=== PATIENT | female | born 1945 | race Caucasian/White ===

== ENCOUNTER 2017-09-26 12:02 | Outpatient (CLI) | payer MEDICARE | END 2017-09-26 12:03 | disposition home or self-care (01) | LOC: BICRAD 12:02 | PROVIDERS: ATTEND Family Medicine | DX: M54.6 Pain in thoracic spine (principal); R68.83 Chills (without fever); R53.83 Other fatigue; J18.9 Pneumonia, unspecified organism; I77.810 Thoracic aortic ectasia | CPT/HCPCS: 71046 ==

== ENCOUNTER 2017-10-17 08:32 | Outpatient (CLI) | payer MEDICARE | END 2017-10-17 08:33 | disposition home or self-care (01) | LOC: BICRAD 08:32 | PROVIDERS: ATTEND Family Medicine | DX: J18.9 Pneumonia, unspecified organism (principal); J84.9 Interstitial pulmonary disease, unspecified | CPT/HCPCS: 71046 ==

== ENCOUNTER 2018-03-17 16:22 | Emergency (ER) | payer MEDICARE, OTHER ==
[~2018-03-17 16:22] MED LIST: ISOVUE-370 76%-LOCM 1 ML ONE
[2018-03-17] MEDS ORDERED: Ketorolac Tromethamine 30 MG/ML VIAL ONE (18:10)
--- NOTE | 2018-03-17 18:47 | RAD ---
THORACIC SPINE THREE VIEWS: 03/17/18 INDICATION: History of back pain. FINDINGS: There is diffuse osteopenia. There is multilevel spondylosis of the thoracic spine. No definite acute fracture or subluxation is evident. Cholecystectomy clips are seen within the right upper quadrant. IMPRESSION: 1. No definite acute osseous abnormality. 2. Diffuse osteopenia. POS: [facility]
--- NOTE | 2018-03-17 18:56 | RAD ---
LUMBAR SPINE THREE VIEWS: 03/17/18 INDICATION: Back pain. FINDINGS: There is mild levoscoliosis of the lumbar spine. There is diffuse osteopenia. There is stable mild co mpression abnormality of L2 when compared to prior CT dated 01/12/17. There is multilevel spondylosis of the lumbar spine. There is a right total hip prosthesis in place. IMPRESSION: 1. No acute osseous abnormality. 2. Stable wedge compression fracture of L2. POS: [facility]
[2018-03-17 19:49] LABS: Hemoglobin 12.5 g/dL (12.0-16.0); Mean Corpuscular Hemoglobin 29.6 pg (27.0-31.0); Mean Corpuscular Volume 92.5 fL (78.0-98.0); Mean Platelet Volume 6.2 fL (7.4-10.4); Platelet Count 317 thou/uL (130-400); RBC Distribution Width 15.1 % (11.5-14.5); Red Blood Cell (RBC) Count 4.24 mill/uL (4.20-5.40); White Blood Cell (WBC) Count 6.1 thou/uL (4.8-10.8)
[2018-03-17 20:10] LABS: Anisocytosis SLIGHT = 6-15 cells (100X) (0-5/hpf); Eosinophils 2 % (0-10); Lymphocytes 33 % (21-51); MDiff Complete? YES; Monocytes 4 % (0-10); Neutrophil 59 % (42-75); PLT Morphology Comment Appears Adequate; Polychromasia SLIGHT = 2-3 cells (100X) (0-2/hpf)
[2018-03-17 20:30] LABS: Albumin 3.7 g/dL (3.4-4.8)
[2018-03-17 20:31] LABS: Chloride 102 mmol/L (98-107); Potassium 4.6 mmol/L (3.5-5.1); Sodium 136 mmol/L (136-145)
[2018-03-17 20:32] LABS: Calcium 8.9 mg/dL (7.8-10.44)
[2018-03-17 20:32] LABS: Bilirubin Negative (Negative); Blood, Urine Negative (Negative); Clarity CLOUDY (Clear); Glucose, Urine (Dipstick) Negative (Negative); Leukocyte Moderate (Negative); Nitrite Negative (Negative); Protein, Urine (Dipstick) Negative (Neg-Trace); Specific Gravity, Urine 1.008 (1.002-1.036); Urobilinogen 0.2 mg/dL (0.2-1.0); pH, Urine 5.5 (5.0-9.0)
[2018-03-17 20:33] LABS: Globulin 3.7 g/dL (2.4-3.5); Glucose 85 mg/dL (83-110); Protein, Total 7.4 g/dL (6.0-8.3)
[2018-03-17 20:34] LABS: Anion Gap 16 mmol/L (10-20); Carbon Dioxide 23 mmol/L (23-31)
[2018-03-17 20:35] LABS: Bilirubin, Total 0.6 mg/dL (0.2-1.2)
[2018-03-17 20:35] LABS: Bacteria/HPF None Seen HPF (None Seen); Hyaline Casts/LPF 0-3 HYALINE CAST LPF (0-3 Hyaline); Pathc Cast-AUWi Flag 0.72 (0-2.49)
[2018-03-17 20:36] LABS: Alkaline Phosphatase 47 U/L (40-150); Calc. Creatinine Clearance 0 mL/min (70-130); Estimated GFR-MDRD 32
[2018-03-17 20:37] LABS: BUN (Urea Nitrogen) 24 mg/dL (9.8-20.1)
[2018-03-17 20:38] LABS: AST (SGOT) 33 U/L (5-34)
[2018-03-17 20:39] LABS: ALT (SGPT) 13 U/L (8-55); CK (CPK) 59 U/L (29-168); Lipase 136 U/L (8-78)
[2018-03-17] MEDS ORDERED: Diazepam 5 MG TAB ONE (21:28)
--- NOTE | 2018-03-17 21:35 | CT ---
CTA AORTIC DISSECTION PROTOCOL WITH IV CONTRAST AND 3D REFORMATTED IMAGIN03/17/18 INDICATION: History of chest pain. COMPARISON: Comparisons are made with a CT of the chest, abdomen and pelvis dated 01/12/17. FINDINGS: No acute aortic stenosis, occlusion or aneurysmal formation is demonstrated. There is mild aneurysmal dilatation of the aortic arch which is stable measuring 3.1 cm. There are coronary artery thoracic a ortic calcifications. No definite central pulmonary embolus is grossly evident. There is moderate siz ed hiatal hernia. No pathologically enlarged lymph nodes are seen within the mediastinum, hilar or ax illary regions. There is scattered centrilobular emphysema. No confluent air space opacity or pleural effusion is silva dent. No pneumothorax is identified. There is some mild narrowing involving the origin of the celiac artery. The SMA is widely patent. The re are single renal arteries bilaterally. Both renal arteries are widely patent. The ARACELIS is widely pa tent. Both common iliac arteries are widely patent. There is an infraumbilical fat containing hernia with its mouth measuring 1.9 cm. The gallbladder is surgically absent. There is mild extrahepatic and intrahepatic biliary ductal dilatation likely relat ed to post cholecystectomy state. No focal hepatic lesion is evident. The pancreas, spleen, and adrenal glands are normal appearing. Th e kidneys are normal appearing. There are moderate calcifications involving the abdominal aorta. There is a mild amount of retained stool within the colon. There is a stable mild wedge compression abnormality of L2. There has been interval development of an inferior end plate compression abnormality of T12. No additional acute fracture is grossly evident. There is scattered degenerative and osteoarthritic change. IMPRESSION: 1. No acute aortic stenosis, occlusion or aneurysmal formation demonstrated. There is stable mil d aneurysmal dilatation involving the aortic arch. 2. Interval T12 inferior endplate fracture. 3. Emphysema. 4. Moderate hiatal hernia. 5. Cholecystectomy. 6. Other chronic findings as above. POS: [facility]
== END 2018-03-17 22:04 | disposition home or self-care (01) ==
LOC: ERS 16:22
DX: M54.6 Pain in thoracic spine (principal); F41.9 Anxiety disorder, unspecified; F32.9 Major depressive disorder, single episode, unspecified; F42.9 Obsessive-compulsive disorder, unspecified; Z79.82 Long term (current) use of aspirin; Z79.899 Other long term (current) drug therapy
CPT/HCPCS: 71275; 72072; 72100; 80053; 81003; 81015; 82550; 83690; 85025; 93005; 96372; J1885; J2270

== ENCOUNTER 2018-04-05 12:28 | Outpatient (CLI) | payer MEDICARE ==
--- NOTE | 2018-04-05 15:40 | MRI ---
MRI THORACIC SPINE: History: Upper and lower back pain for one month. Compression fracture in midback. Technique: Multiplanar, multisequence noncontrast enhanced MRI images were obtained of the thoracic s david. FINDINGS: Images demonstrate the spinal cord to be unremarkable with no evidence of significant cord masses or lesions. There is an approximately 35% height loss with signal abnormalities seen in the T11 vertebra e. This is compatible with a T11 fracture. This appears to be a central burst type fracture. No signi ficant evidence of signal abnormality is seen extending into the pedicles. The central canal is not c ompromised due to retropulsion. The fracture extends to involve the superior and inferior endplates o f the T11 vertebrae. There is signal abnormality seen throughout the entire T11 vertebral body. The neural foramen are patent. IMPRESSION: 1. Acute T11 vertebral body fracture. 2. Incidentally noted hiatal hernia does appear to be present. POS: [facility]
--- NOTE | 2018-04-05 15:45 | MRI ---
LUMBAR SPINE MRI WITHOUT IV CONTRAST: History: 72-year-old female with history of low back pain, M54.5. Upper and lower back pain after a fall one m onth ago. History of a compression fracture. FINDINGS: Multiplanar, multisequence MRI examination of the lumbar spine is performed. Comparison is made to a prior 16 study. Generalized disc desiccation changes and ligament and facet hypertrophy changes throughout the lumbar spine. There is a mildly compressed acute appearing T11 vertebral body compression which was more co mpletely discussed in the thoracic spine MRI report. L1-2: There is ligament and facet hypertrophy changes with minimal diffuse disc bulging with mild lat eral recess and foraminal stenosis, greater on the right side. L2-3: There is diffuse disc bulging with ligament and facet hypertrophic changes with moderate centra l canal and lateral recess stenosis and bilateral foraminal stenosis, moderate. L3-4: There is moderate to severe central canal stenosis and lateral recess stenosis with a somewhat more focal right paracentral protrusion with some right lateral nerve root depression. Mild to modera te foraminal stenosis. L4-5: Severe central canal and lateral recess stenosis and moderate bilateral foraminal stenosis. L5-S1: Moderate central canal and lateral recess stenosis. Prominent amount of fluid within the right facet joint. Moderate to severe bilateral foraminal stenosis. IMPRESSION: Multilevel variable severity canal, lateral recess, and foraminal stenosis with extensive disc desicc ation changes and ligament and facet hypertrophic changes with an acute mild T11 compression fracture , more completely described on the thoracic spine MR. POS: [facility]
--- NOTE | 2018-04-05 16:22 | RAD ---
CERVICAL SPINE FOUR VIEWS: History: 72-year-old female with history of neck pain, M54.2. FINDINGS: Exam includes flexion and extension lateral views. Severe disc osteophytosis at C5-6 and C6-7. No sig nificant abnormal translation between flexion and extension. No prevertebral soft tissue swelling. C7 and T1 are obscured on the lateral view. IMPRESSION: Severe spondylosis, particularly at C5-6 and C6-7 without evidence for abnormal translation. POS: [facility]
--- NOTE | 2018-04-05 16:34 | MRI ---
NONCONTRAST MRI CERVICAL SPINE: 04/05/18 HISTORY: Neck pain. COMPARISON: 12/27 10/11. FINDINGS: Degenerative changes are again seen throughout the cervical spine. C2-3 level: There is no disc bulge or disc herniation. Central spinal canal and neural foramina are p atent. C3-4 level: There is trace anterolisthesis of C3 on C4 similar to a prior exam. There are facet degen erative changes with broad based disc osteophyte complex present. There is mild effacement of the jasper tral subarachnoid space. The right neural foramen is patent, with resultant moderate to severe left s ided neural foraminal narrowing. C4-5 level: There is mild disc space narrowing with mild disc osteophyte complex present. There is mi ld effacement of the ventral subarachnoid space. There is mild bilateral neural foraminal narrowing, greater on the left. C5-6 level: There is loss of intervertebral disc height. There is broad based disc osteophyte complex present with uncinate process hypertrophy as well. There is narrowing of the ventral subarachnoid sp rigo. The right neural foramen is patent, but there is moderate left sided neural foraminal narrowing again present. C6-7 level: There is loss of the intervertebral disc height. There is a broad based disc osteophyte c omplex. There is no significant narrowing of the central spinal canal. Right neural foramen is patent , but there is persistent mild left sided neural foraminal narrowing. C7-T1 level: There is no disc bulge or disc herniation and neural foramina are patent. Paravertebral soft tissues are within normal limits. IMPRESSION: Multilevel degenerative changes seen throughout the cervical spine which have not significantly progr essed when compared to the prior exam. There is stable trace anterolisthesis of C3 on C4 with greates t degree of degenerative changes present at the C5-6 and C6-7 levels similar to the prior study. POS: [facility]
== END 2018-04-05 12:29 | disposition home or self-care (01) ==
LOC: BICMRI 12:28 → MRI 12:29
PROVIDERS: ATTEND Family Medicine
DX: M54.9 Dorsalgia, unspecified (principal); M47.812 Spondylosis without myelopathy or radiculopathy, cervical region; M43.12 Spondylolisthesis, cervical region; M48.061 Spinal stenosis, lumbar region without neurogenic claudication; S22.089A Unspecified fracture of T11-T12 vertebra, initial encounter for closed fracture
CPT/HCPCS: 72050; 72141; 72146; 72148

== ENCOUNTER 2018-05-11 13:30 | Emergency (ER) | payer MEDICARE ==
[2018-05-11] MEDS ORDERED: HYDROcodone/Acetaminophen 5/325 mg Tablet ONE (13:56)
--- NOTE | 2018-05-11 14:58 | CT ---
CT LUMBAR SPINE: Date: 05-11-18 Provided Clinical History: Back pain. FINDINGS: Correlation is made with MRIs performed 04-05-18. Lumbar alignment is unchanged. Lumbar vertebral body heights appear preserved. Partially visualized k nown fracture involving T11. Advanced multilevel lumbar disc and facet degenerative changes appear si milar to the 04-05-18 lumbar spine MRI. The visualized extraspinal soft tissues demonstrate no evidenc e for an acute process. IMPRESSION: Lumbar degenerative changes are demonstrated. Partially visualized T11 fracture. Please correlate wit h concurrently performed CT thoracic spine. POS: [facility]
--- NOTE | 2018-05-11 15:12 | CT ---
CT THORACIC SPINE NONCONTRAST: Date: 05/11/18 Time: 1421 hours HISTORY: 73-year-old female with mid back pain, M54.9. Compression fracture of lower thoracic spine. FINDINGS: On the MRI of 04/05/18, there was an acute or subacute T11 vertebral body compression fracture, with approximately 35% loss of height. This has undergone interval further loss of height, now with approx imately 50% loss of height. The T11 vertebral body has mixed sclerotic and lucent changes. There is a new finding of transversely oriented curvilinear fracture lucency across the anterior supe rior aspect of the T10 vertebral body, with minimal, 10% or less, loss of height. Another new finding of mild depression of the superior end plate of L2, with approximately 10-20% los s of height. Questionable minimal anterior wedging loss of height of T3 vertebral body, with approximately 10-15% loss of height. Axial images do demonstrate subtle linear short fracture lucency at the anterior edge of the T3 vertebral body. There is prevertebral soft tissue thickening consistent with edema/small h ematoma at the T11 level. No bony retropulsion at any of these levels in the thoracic spine. Approximately 20% of the stomach is herniated superior to the diaphragm. IMPRESSION: 1. Further collapse of the compression fracture of T11. 2. Mild compression fracture of T10, with minimal loss of height. 3. Probable mild compression fracture of T3, apparently acute, with minimal loss of height. 4. Probably new compression fracture with mild loss of height of L2. 5. Diffuse, severe osteopenia. 6. Moderate size hiatal hernia. POS: [facility]
[2018-05-11] MEDS ORDERED: Morphine 4 MG/ML VIAL ONE (16:12)
== END 2018-05-11 19:31 ==
LOC: ERS 13:30
DX: S22.079A Unspecified fracture of T9-T10 vertebra, initial encounter for closed fracture (principal); S22.089A Unspecified fracture of T11-T12 vertebra, initial encounter for closed fracture; I73.9 Peripheral vascular disease, unspecified; F41.9 Anxiety disorder, unspecified; F32.9 Major depressive disorder, single episode, unspecified; F42.9 Obsessive-compulsive disorder, unspecified; Z79.899 Other long term (current) drug therapy; Z79.82 Long term (current) use of aspirin; W18.30XA Fall on same level, unspecified, initial encounter
CPT/HCPCS: 72128; 72131; 96372; J2270

== ENCOUNTER 2018-06-06 15:22 | Outpatient (CLI) | payer MEDICARE ==
--- NOTE | 2018-06-06 17:27 | RAD ---
THORACIC SPINE THREE VIEWS: 06/06/18 INDICATION: Fall with back pain. FINDINGS: The exam is compared to a prior CT of thorax dated 05/11/18. FINDINGS: There is worsening loss of height involving the T10 superior end plate compression abnormality. There is now approximately 40% loss of height at the T10 vertebral level. There is stable moderate wedge c ompression abnormality involving T11. No new fracture is evident. There is diffuse osteopenia. There are posterior midline fusion defects at T1 and T2. The aorta is tortuous. Gallbladder is surgically a bsent. IMPRESSION: 1. Worsening moderate wedge compression abnormality involving T10. 2. Stable moderate wedge compression abnormality of T11. POS: [facility]
== END 2018-06-06 15:23 | disposition home or self-care (01) ==
LOC: BICRAD 15:22
PROVIDERS: ATTEND Family Medicine
DX: M54.6 Pain in thoracic spine (principal); M43.8X4 Other specified deforming dorsopathies, thoracic region
CPT/HCPCS: 72072

== ENCOUNTER 2018-06-18 14:02 | Outpatient (CLI) | payer MEDICARE ==
--- NOTE | 2018-06-18 16:53 | RAD ---
THREE VIEWS THORACIC SPINE: HISTORY: Compression fracture status post fall. FINDINGS: AP, lateral, and swimmer's views thoracic spine are obtained. Comparison is made to previous exam fr 06/06/2018. Images demonstrate compression fractures seen in the T10 and T11 levels. The degree of compression f racture has not significantly changed since the previous exam. No evidence of quinten- or retrolisthe sis seen. IMPRESSION: Lower thoracic compression fracture with osteoporosis noted in the thoracic spine. POS: [facility]
--- NOTE | 2018-06-18 17:36 | RAD ---
LUMBAR SPINE TWO VIEWS: 06/18/2018 HISTORY: Thoracic compression fracture. COMPARISON: 03/17/2018 FINDINGS: There are five [id number] lumbar-type vertebral bodies. There is mild irregularity involving th e superior endplate of the L2 vertebral body, which is stable from the prior study. The remaining ve rtebral body heights are grossly within normal limits, involving the lumbar spine. Although there is limited evaluation of the lower thoracic spine, there do appear to be compression fractures involvin g the T10 and T11 vertebral bodies, with questionable slight height loss of the T9 vertebral body; ho wever, there is only limited evaluation. There is mild right convex curvature of the thoracolumbar s pine. Mild facet degenerative changes are seen in the lower lumbar spine. Surgical clips overly the right upper quadrant. A right total hip prosthesis is present. IMPRESSION: 1. Incomplete evaluation of fractures involving the T9, T10, and T11 vertebral bodies. The greatest degree of height loss appears to involve the T11 vertebral body. 2. Degenerative changes in the lumbar spine. No fracture is seen involving the lumbar spine, althou gh there is stable mild irregularity involving the superior endplate of the L2 vertebral body, which may be related to a remote minimal type compression deformity of this vertebral body. POS: [facility]
== END 2018-06-18 14:03 | disposition home or self-care (01) ==
LOC: TBSIIMAG 14:02
PROVIDERS: ATTEND Surgery
DX: M48.54XA Collapsed vertebra, not elsewhere classified, thoracic region, initial encounter for fracture (principal); M47.816 Spondylosis without myelopathy or radiculopathy, lumbar region; M81.0 Age-related osteoporosis without current pathological fracture
CPT/HCPCS: 72072; 72100

== ENCOUNTER 2018-06-26 22:20 | Emergency (ER) | payer MEDICARE ==
[2018-06-26] MEDS ORDERED: Ondansetron ODT 4 MG TAB ONE (23:17)
[2018-06-27] MEDS ORDERED: hydrOXYzine 25 MG TAB ONE (02:03)
[2018-06-27 02:28] LABS: #Eosinphils 0.4 thou/uL (0.0-0.7); #Lymphocytes 1.3 thou/uL (1.20-3.40); #Monocytes 0.7 thou/uL (0.11-0.59); #Neutrophils 5.6 thou/uL (1.40-6.50); %Basophils 0.5 % (0.0-1.0); %Eosinophils 4.8 % (0.0-10.0); %Lymphocytes 16.4 % (21.0-51.0); %Monocytes 8.8 % (0.0-10.0); %Neutrophils 69.5 % (42.0-75.0); Hemoglobin 11.4 g/dL (12.0-16.0); Mean Corpuscular HGB CONC 30.7 g/dL (32.0-36.0); Mean Corpuscular Hemoglobin 28.1 pg (27.0-31.0); Mean Corpuscular Volume 91.5 fL (78.0-98.0); Mean Platelet Volume 5.6 fL (7.4-10.4); Platelet Count 370 thou/uL (130-400); RBC Distribution Width 13.7 % (11.5-14.5); Red Blood Cell (RBC) Count 4.07 mill/uL (4.20-5.40); White Blood Cell (WBC) Count 8.1 thou/uL (4.8-10.8)
[2018-06-27 02:50] LABS: Acetaminophen Less than 6.0 mcg/mL (10.0-30.0); Alcohol Less than 10 mg/dL (Less than 10); Anion Gap 16 mmol/L (10-20); BUN (Urea Nitrogen) 25 mg/dL (9.8-20.1); CK (CPK) 40 U/L (29-168); Calc. Creatinine Clearance 0 mL/min (70-130); Calcium 9.3 mg/dL (7.8-10.44); Carbon Dioxide 26 mmol/L (23-31); Chloride 96 mmol/L (98-107); Estimated GFR-MDRD 31; Glucose 103 mg/dL (83-110); Potassium 3.9 mmol/L (3.5-5.1); Salicylate Less than 8.0 mg/dL (15.0-30.0); Sodium 134 mmol/L (136-145)
[2018-06-27 02:56] LABS: Bilirubin Negative (Negative); Blood, Urine Negative (Negative); Clarity CLEAR (Clear); Glucose, Urine (Dipstick) Negative (Negative); Leukocyte Trace (Negative); Nitrite Negative (Negative); Protein, Urine (Dipstick) Negative (Neg-Trace); Urobilinogen 0.2 mg/dL (0.2-1.0)
[2018-06-27 02:58] LABS: Bacteria/HPF None Seen HPF (None Seen); Hyaline Casts/LPF 0-3 HYALINE CAST LPF (0-3 Hyaline); RBC/HPF None Seen HPF (0-3); Squamous Epithelial 0-3 HPF (0-3); WBC/HPF 0-3 HPF (0-3)
[2018-06-27 04:12] LABS: Amphetamine Not Detected (NotDetected); Barbiturates Screen Not Detected (NotDetected); Benzodiazepine Screen Not Detected (NotDetected); Cocaine Metabolite Screen Not Detected (NotDetected); Medtox Reader # READER 1; Methadone Not Detected (NotDetected); Methamphetamine Not Detected (NotDetected); Oxycodone Screen Not Detected (NotDetected); Phencyclidine (PCP) Not Detected (NotDetected); THC/Cannabinoid Screen Not Detected (NotDetected); Tricyclic Screen Not Detected (NotDetected)
[2018-06-27 04:13] LABS: Medtox Control Line Valid? VALID (VALID)
--- NOTE | 2018-06-27 08:11 | CT ---
PRELIMINARY REPORT/[facility]/EMERGENTY AFTER-HOURS PROCEDURE CT Head Without Contrast EXAM DATE/TIME: 06/27/2018 2:50 AM CLINICAL HISTORY: 73 years old, female; Pain; Headache; Patient HX: Er 5; Headache; Patient was seen by pcp today. Stat es she has been placed on and has had many medications switched. "horrible anxiety, headaches. Also r eports nausea. TECHNIQUE: Axial computed tomography images of the head/brain without contrast. COMPARISON: No relevant prior studies available. FINDINGS: Brain: No intracrainal hemorrhage. No midline shift. The brain parenchyma appears normal for age. Mil d global cerebral volume loss. Small vessel ischemic change Ventricles: No ventriculomegaly. Bones/joints: Unremarkable. No acute fracture. Sinuses: Visualized sinuses are unremarkable. No acute sinusitis. Mastoid air cells: Visualized mastoid air cells are unremarkable. No mastoid effusion. Soft tissues: Unremarkable. IMPRESSION: No acute intracranial abnormality. Thank you for allowing us to participate in the care of your patient. Dictated and Authenticated by: Akbar Bettencourt MD 06/27/2018 2:57 AM Central Time ([place] & [place]) FINAL REPORT CT BRAIN WITHOUT CONTRAST: Date: 06/27/18 FINDINGS/IMPRESSION: I agree with the preliminary report provided by [facility]. No definite acute intracranial abnormality is e vident. There is mild chronic small vessel white matter ischemic change, which appears similar to the comparison dated 01/20/17. POS:
[2018-06-28 12:45] LABS: Opiate Screen Detected (NotDetected)
== END 2018-06-27 06:27 | disposition home or self-care (01) ==
LOC: ERS 22:20
DX: F41.9 Anxiety disorder, unspecified (principal); F32.9 Major depressive disorder, single episode, unspecified; G62.9 Polyneuropathy, unspecified; Z87.891 Personal history of nicotine dependence; Z79.82 Long term (current) use of aspirin; Z79.899 Other long term (current) drug therapy
CPT/HCPCS: 36415; 70450; 80048; 80306; 80307; 81003; 81015; 82550; 84443; 84484; 85025; 93005; Q0162

== ENCOUNTER 2018-07-03 02:04 | Emergency (ER) | payer MEDICARE ==
[2018-07-03] MEDS ORDERED: hydrOXYzine 25 MG TAB ONE ×2 (02:51→02:56)
== END 2018-07-03 03:07 | disposition home or self-care (01) ==
LOC: ERS 02:04
DX: L29.9 Pruritus, unspecified (principal); F41.9 Anxiety disorder, unspecified; F32.9 Major depressive disorder, single episode, unspecified; F42.9 Obsessive-compulsive disorder, unspecified; I73.9 Peripheral vascular disease, unspecified; G62.9 Polyneuropathy, unspecified; Z87.891 Personal history of nicotine dependence; Z79.82 Long term (current) use of aspirin; Z79.899 Other long term (current) drug therapy
CPT/HCPCS: 99283

== ENCOUNTER 2018-07-10 04:02 | Emergency (ER) | payer MEDICARE ==
[2018-07-10] MEDS ORDERED: Morphine 4 MG/ML VIAL ONE ×2 (05:11→08:20)
[2018-07-10] MEDS ORDERED: HYDROcodone/Acetaminophen 5/325 mg Tablet ONE (06:36)
[2018-07-10] MEDS ORDERED: Diazepam 5 MG TAB ONE (08:20)
--- NOTE | 2018-07-10 08:22 | CT ---
THORACIC SPINE CT NONCONTRAST: CLINICALLY INDICATIONS: History of thoracic spine compression fracture. COMPARISON: Reference made to thoracic spine radiographs from 06/18/2018. FINDINGS: Mild superior endplate height loss involves the T4 vertebral body. There is mild inferior height los s of T10 and moderate anterior and central height loss of T11. There is a comminuted fracture with m oderate central height loss of T12. The fracture demonstrates a vertically oriented plane within the central aspect of the vertebral body. There is mild retropulsion of bone involving the T10, T11, an d T12 fractures. There is mild levocurvature of the lower thoracic spine. There is generalized osseous demineralization. Multilevel endplate degenerative changes are present. There is a large hiatal hernia. Scattered vascular calcification is seen. IMPRESSION: 1. Multilevel compression fractures throughout the thoracic spine, as discussed above. 2. Mild retropulsion of bone of the T10, T11, and T12 segments, related to compression deformities, is present, with mild effacement of the vertebral canal. POS: [facility]
== END 2018-07-10 09:45 | disposition home or self-care (01) ==
LOC: ERS 04:02
DX: S22.079A Unspecified fracture of T9-T10 vertebra, initial encounter for closed fracture (principal); S22.089A Unspecified fracture of T11-T12 vertebra, initial encounter for closed fracture; F41.9 Anxiety disorder, unspecified; F32.9 Major depressive disorder, single episode, unspecified; Z87.891 Personal history of nicotine dependence; Z79.899 Other long term (current) drug therapy; Z79.82 Long term (current) use of aspirin; X58.XXXA Exposure to other specified factors, initial encounter
CPT/HCPCS: 72128; 96372; J2270

== ENCOUNTER 2018-07-11 08:31 | Emergency (ER) | payer MEDICARE ==
[2018-07-11] MEDS ORDERED: Ondansetron ODT 4 MG TAB ONE (09:18)
[2018-07-11] MEDS ORDERED: HYDROcodone/Acetaminophen 10/325 mg Tablet ONE (09:20)
[2018-07-11] MEDS ORDERED: HYDROcodone/Acetaminophen 5/325 mg Tablet ONE (15:54)
== END 2018-07-11 18:08 ==
LOC: ERS 08:31
DX: G89.29 Other chronic pain (principal); M54.5 Low back pain; F41.9 Anxiety disorder, unspecified; F32.9 Major depressive disorder, single episode, unspecified; F42.9 Obsessive-compulsive disorder, unspecified; Z87.891 Personal history of nicotine dependence; Z79.899 Other long term (current) drug therapy; Z79.82 Long term (current) use of aspirin
CPT/HCPCS: 99283; Q0162

== ENCOUNTER 2018-08-01 08:22 | Outpatient (CLI) | payer MEDICARE ==
--- NOTE | 2018-08-01 10:36 | CT ---
CT THORAX WITHOUT IV CONTRAST: INDICATIONS: Follow up thoracic spine fractures with back pain. COMPARISON: Recent CT thorax from [facility], dated 07/10/2018. TECHNIQUE: Multiple noncontrast CT images were obtained of the thoracic spine. Axial, coronal, and sagittal ref ormatted images were constructed from the raw data. FINDINGS: The moderate wedge compression fractures detailed on the prior examinations, involving T10 and T11, a re not appreciably changed in height. There is an inferior endplate compression abnormality involving T9 without appreciable interval loss of height. There is a superior endplate compression abnormality with mild central depression, involving T8, that has worsened in height loss since the prior exam. The remote appearing superior endplate compression fracture of T3 is stable. Diffuse osteopenia persists. No appreciable osseous central canal narrowing is evident. There is mi ld osseous neural foraminal narrowing seen at T8-T9,on the left, with mild right osseous neural garcía inal narrowing seen at T8-T9 and T9-T10. This is stable since the prior exam. Again seen is a moderate-sized hiatal hernia. There is scattered emphysema of the lungs. IMPRESSION: 1. Worsening loss of height involving the superior endplate central compression deformity of T8. Lo ss of height is approximately 20% of the original vertebral body height. 2. Stable inferior endplate central compression abnormality of T9. 3. Stable moderate wedge compression abnormalities at T10 and T11. 4. Chronic superior endplate compression abnormality of T3 is stable. 5. Diffuse osteopenia. 6. Multilevel spondylosis of the thoracic spine. 7. Emphysema. 8. Moderate hiatal hernia. POS: [facility]
--- NOTE | 2018-08-01 10:57 | CT ---
CT OF THE LUMBAR SPINE: Date: 08-01-18 Comparison: 05-11-18 History: History of fracture, low back pain. Technique: Axial CT imaging at 3 mm intervals through the lumbar spine with coronal and sagittal refo rmatted imaging. FINDINGS: Evaluation for central canal and/or neural foraminal stenosis is limited on routine CT examination. P artially imaged cholecystectomy clips are present. Partially visualized hiatal hernia is noted. There are scattered atherosclerotic calcifications of the imaged abdominal aorta and its branches. Mo tion artifact slightly limits assessment of the partially visualized abdominal viscera. No significant anterolisthesis or retrolisthesis is noted within the lumbar spine. There is an anterior wedge compression fracture of the T11 vertebral body, better assessed on dedicat ed CT examination of the thoracic spine also performed 08-01-18. This anterior wedge compression fractu re of the T11 vertebral body demonstrates approximately 40% loss of vertebral body height anteriorly, which appears similar when compared to a prior examination. There is a stable mild superior endplate compression deformity involving the left lateral aspect of t he L5 vertebral body. There is also irregularity involving the superior endplate of the L2 and L3 christopher tebral bodies, suggesting remote mild fracture and stable Schmorl's node respectively, unchanged when compared to the 05-11-18 CT examination of the lumbar spine. T12-L1: Mild bilateral facet hypertrophy with no osseous cause of significant central canal or neural foraminal stenosis. L1-2: Mild bilateral facet hypertrophy. Mild disc space narrowing and mild posterior osteophyte with no osseous cause of significant central canal or neural foraminal stenosis. L2-3: There is disc space narrowing and vacuum disc formation. There is mild bilateral facet hypertro phy with probable mild bilateral neural foraminal stenosis, left greater than right. No osseous cause of significant central canal stenosis. L3-4: Bilateral facet hypertrophy and hypertrophy of the ligamentum flavum with at least mild central canal stenosis. There is mild disc space narrowing. No osseous cause of significant neural foraminal stenosis. L4-5: Disc space narrowing and vacuum disc formation. Bilateral facet hypertrophy, right greater than left. Mild bilateral neural foraminal stenosis. L5-S1: Disc space narrowing and vacuum disc formation with bilateral facet hypertrophy and bilateral neural foraminal stenosis, mild to moderate in severity, right greater than left. No worrisome lytic or blastic bone lesion. No new fracture. IMPRESSION: Multilevel degenerative change within the lumbar spine as detailed above. Stable T11 fracture deformi ty, better assessed on dedicated thoracic spine CT examination. POS: [facility]
== END 2018-08-01 08:23 | disposition home or self-care (01) ==
LOC: TBSIIMAG 08:22
PROVIDERS: ATTEND Surgery
DX: M54.6 Pain in thoracic spine (principal); M54.5 Low back pain; M47.816 Spondylosis without myelopathy or radiculopathy, lumbar region; M43.8X4 Other specified deforming dorsopathies, thoracic region; M85.88 Other specified disorders of bone density and structure, other site; M47.814 Spondylosis without myelopathy or radiculopathy, thoracic region; J43.9 Emphysema, unspecified; K44.9 Diaphragmatic hernia without obstruction or gangrene
CPT/HCPCS: 72128; 72131

== ENCOUNTER 2018-08-10 18:19 | Emergency (ER) | payer MEDICARE ==
[2018-08-10] MEDS ORDERED: Cyclobenzaprine 10 MG TAB ONE (18:58)
== END 2018-08-10 21:44 | disposition home or self-care (01) ==
LOC: ERS 18:19
DX: G89.29 Other chronic pain (principal); M54.6 Pain in thoracic spine; F41.9 Anxiety disorder, unspecified; F32.9 Major depressive disorder, single episode, unspecified; Z87.891 Personal history of nicotine dependence; Z79.899 Other long term (current) drug therapy; Z79.82 Long term (current) use of aspirin
CPT/HCPCS: 99283

== ENCOUNTER 2018-08-13 13:17 | Outpatient (CLI) | payer MEDICARE ==
--- NOTE | 2018-08-13 15:19 | RAD ---
TWO VIEW CHEST: History: Rib fractures. Left side pain. Comparison: Thoracic spine films, 06-18-18 FINDINGS: Vertebroplasty changes are now seen in four consecutive midthoracic vertebrae, T9-T12. The lungs appear clear. No infiltrate. Vascular markings in normal range. Heart size is upper normal. No definite rib fractures seen on the PA chest. Concern for rib fracture. Recommend dedicated rib exam. IMPRESSION: 1. No acute lung process. 2. Vertebroplasty changes. POS: [facility]
--- NOTE | 2018-08-13 15:25 | CT ---
CT THORACIC SPINE: Date: 08/13/18 Multiple axial tomograms obtained through the thoracic spine with multiplanar reconstruction. INDICATION: Compression fractures. Kyphoplasty last week. Upper back pain. Comparison made to CT thoracic spine dated 08/01/18. FINDINGS: Vertebroplasty changes are now seen at T9, T10, T11, and T12 since the prior study with vertebroplast y cement within these vertebrae. The compression deformities at these levels appear stable. There is a slight anterior wedge compression of the T4 vertebra with slight compression of the superi or end plate at T4, which could represent a subacute compression. This was present on the prior exam, although this vertebra was incorrectly labeled as T3 on that study. The other thoracic vertebra maintain height. Osteopenia again noted. Degenerative changes in the cerv ical spine noted with loss of disc space and loss of vertebral body height at C6 and C7. IMPRESSION: 1. Vertebroplasty changes are now seen at T9-T12. Compression deformities at these levels appear sta ble. 2. Mild anterior wedging of the T4 vertebra is again seen. This may represent a subacute compression injury, but appears stable when compared to 08/01/18. POS: [facility]
== END 2018-08-13 13:18 | disposition home or self-care (01) ==
LOC: CT 13:17 → BICCT 13:18
PROVIDERS: ATTEND Anesthesiology Pain Medicine
DX: S22.39XA Fracture of one rib, unspecified side, initial encounter for closed fracture (principal); Z98.890 Other specified postprocedural states
CPT/HCPCS: 71046; 72128

== ENCOUNTER 2018-08-21 09:27 | Outpatient (CLI) | payer MEDICARE ==
--- NOTE | 2018-08-21 16:01 | NM ---
FNuclear medicine whole body bone scan: 08/21/2018 HISTORY: 73-year-old female with rib fracture TECHNIQUE: IV injection of 31.4 mCi of technetium 99m-MDP. 3 hours later, whole body skeletal scintigraphy obtained in anterior and posterior views. Multiple ob lique views of the chest. FINDINGS: The labeling of the levels for the report of the thoracic spine CT of 08/13/2018 is incorrect. All lev els should be shifted by 1 level, so that rather than the vertebroplasty cement in levels T9, T10, T1 1, and T12, there are instead at levels T8, T9, T10, and T11. All those levels have increased uptake posteriorly,. There is also increased uptake at the heads of the left seventh and eighth ribs. The re st of those ribs, and none of the other ribs, have increased uptake. There is no other focus of recen t fracture. There is symmetrical increased uptake at the bilateral major joints, especially the knees and ankles, consistent with DJD. IMPRESSION: 1. Evidence of compression fractures at T8, T9, T10, and T11. See above comments regarding discrepanc y. 2. Increased uptake at the rib heads or costovertebral joints, on the left at T7 and T8.
== END 2018-08-21 09:28 | disposition home or self-care (01) ==
LOC: NM 09:27
PROVIDERS: ATTEND Anesthesiology Pain Medicine
DX: S22.39XA Fracture of one rib, unspecified side, initial encounter for closed fracture (principal); M48.54XA Collapsed vertebra, not elsewhere classified, thoracic region, initial encounter for fracture; R93.7 Abnormal findings on diagnostic imaging of other parts of musculoskeletal system
CPT/HCPCS: 78306; A9503

== ENCOUNTER 2019-02-10 15:09 | Inpatient (IN) | payer MEDICARE, OTHER ==
--- NOTE | 2019-02-10 15:57 | RAD ---
PORTABLE CHEST: COMPARISON: 08/13/2018 study. HISTORY: Cough. FINDINGS: The heart size is borderline with atherosclerotic change of the aorta. Lungs show some chronic wallace e. There are infiltrative changes within the left mid and lower lung carr. Vertebroplasty change is noted. IMPRESSION: Left-sided pneumonia. POS: THA
[2019-02-10 16:18] LABS: #Lymphocytes 0.5 thou/uL (1.20-3.40); #Monocytes 0.2 thou/uL (0.11-0.59); #Neutrophils 10.6 thou/uL (1.40-6.50); %Eosinophils 0.1 % (0.0-10.0); %Lymphocytes 4.6 % (21.0-51.0); %Neutrophils 93.2 % (42.0-75.0); Hemoglobin 12.1 g/dL (12.0-16.0); Mean Corpuscular HGB CONC 31.7 g/dL (32.0-36.0); Mean Corpuscular Hemoglobin 27.4 pg (27.0-31.0); Mean Corpuscular Volume 86.3 fL (78.0-98.0); Mean Platelet Volume 6.2 fL (7.4-10.4); Platelet Count 361 thou/uL (130-400); RBC Distribution Width 15.7 % (11.5-14.5); White Blood Cell (WBC) Count 11.4 thou/uL (4.8-10.8)
[2019-02-10] MEDS ORDERED: Sodium Chloride 0.9% 100 ML ONE (16:20)
[2019-02-10] MEDS ORDERED: Azithromycin 500 MG VIAL ONE (16:20)
[2019-02-10] MEDS ORDERED: cefTRIAXone\\ROCEPHIN 2 GM VIAL ONE (16:21)
[2019-02-10 16:25] LABS: Bilirubin Negative (Negative); Blood, Urine Negative (Negative); Clarity Turbid (Clear); Glucose, Urine (Dipstick) Normal (Negative); Leukocyte Negative Leu/uL (Negative); Nitrite Negative (Negative); Protein, Urine (Dipstick) Negative (Neg-Trace); Urobilinogen Normal mg/dL (Less than 2)
[2019-02-10 16:36] LABS: ALT (SGPT) 7 U/L (8-55); AST (SGOT) 21 U/L (5-34); Albumin 3.4 g/dL (3.4-4.8); Alkaline Phosphatase 37 U/L (40-150); Anion Gap 14 mmol/L (10-20); BUN (Urea Nitrogen) 18 mg/dL (9.8-20.1); Bilirubin, Total 0.4 mg/dL (0.2-1.2); Calc. Creatinine Clearance 0 mL/min (70-130); Carbon Dioxide 23 mmol/L (23-31); Chloride 105 mmol/L (98-107); Estimated GFR-MDRD 36; Globulin 3.5 g/dL (2.4-3.5); Glucose 80 mg/dL (83-110); Potassium 4.4 mmol/L (3.5-5.1); Protein, Total 6.9 g/dL (6.0-8.3); Sodium 138 mmol/L (136-145)
[2019-02-10] MEDS ORDERED: Ondansetron ODT 4 MG TAB SL PRN (19:12)
[2019-02-10] MEDS ORDERED: Acetaminophen 325 MG TAB PO PRN (19:12)
[2019-02-10] MEDS ORDERED: Ondansetron PF 4 MG/2 ML Vial IVP PRN ×2 (19:12→19:16)
[2019-02-10] MEDS ORDERED: hydrALAZINE 20 MG/ML VIAL SLOW IVP PRN (19:16)
[2019-02-10 20:35] VITALS: BMI 38.2
--- NOTE | 2019-02-10 21:21 | HP ---
PRIMARY CARE PROVIDER: Deidra Cristobal MD. CHIEF COMPLAINT: Cough and shortness of breath. HISTORY OF PRESENT ILLNESS: This is a 73-year-old female who presents to [facility] Emergency Department complaining of approximate 1 to 2 week history of persistent cough with increasing shortness of breath with brown sputum production. The patient was noted with fever up to 101.8 degrees Fahrenheit reported by EMS personnel. In the emergency room, the patient was noted with 103 degree Fahrenheit temperature. The patient states she did receive influenza and pneumonia vaccination in 2019 and had 1 prior episode of pneumonia in the past. The patient denies residing in a snf or recent hospitalization, but does state that she has had several stays at [facility] due to persistent back pain related to osteoporosis and spinal fractures. The patient states she has undergone kyphoplasty by her automotive paint technician with excellent results in reducing her pain and increasing mobility. The patient denied any documented fever at home and does state that she has home health services through [facility]. The patient admits to some difficulty with shortness of breath on deep inspiration and limiting her mobility status. The patient has used intermittent oxygen at home previously after recent hospitalization after sustaining spinal fractures. The patient denied any new medication exposure, travel history, or family members with similar symptoms. The patient states she lives independently at [place] with a rolling walker or cane for ambulation. In the emergency room, the patient underwent general evaluation including chest imaging showing evidence of left-sided infiltrate concerning for pneumonia. The patient did meet sepsis protocol with elevated lactic acid level, white blood cell count, fever, and tachycardia. The patient received IV Rocephin and Zithromax in addition to Tylenol and intravenous normal saline x2 L. The patient was referred to the hospitalist service for admission. PAST MEDICAL HISTORY: 1. Chronic pain syndrome. 2. Fibromyalgia. 3. Osteoporosis with spinal fractures. 4. Peripheral neuropathy. 5. Restless legs syndrome. 6. Chronic fatigue syndrome. 7. History of chronic kidney disease. PAST SURGICAL HISTORY: 1. Status post cholecystectomy. 2. Status post hysterectomy. 3. Status post right total hip arthroplasty. 4. Status post tonsillectomy. 5. Status post appendectomy. 6. Status post kyphoplasty. PSYCHIATRIC HISTORY: Positive for anxiety, depression, and obsessive-compulsive disorder. FAMILY HISTORY: No inheritable disease per patient report. SOCIAL HISTORY: The patient resides independently at [place]. Quit tobacco use greater than 10 years. No alcohol or illicit drug use. ALLERGIES: TO LATEX, NEOSPORIN, PENICILLIN, AND SULFA. REVIEW OF SYSTEMS: CONSTITUTIONAL: Negative for weight loss or gain, ability to conduct usual activities. SKIN: Negative for rash, itching. EYES: Negative for double vision, pain. ENT/MOUTH: Negative for nose bleeding, neck stiffness, pain, tenderness. CARDIOVASCULAR: Negative for palpitations, dyspnea on exertion, orthopnea. RESPIRATORY: Negative for shortness of breath, wheezing, cough, hemoptysis, fever or night sweats. GASTROINTESTINAL: Negative for poor appetite, abdominal pain, heartburn, nausea, vomiting, constipation, or diarrhea. GENITOURINARY: Negative for urgency, frequency, dysuria, nocturia. MUSCULOSKELETAL: Negative for pain, swelling. NEUROLOGIC/PSYCHIATRIC: Negative for anxiety, depression. ALLERGY/IMMUNOLOGIC: Negative for skin rash, bleeding tendency. Otherwise negative except as stated per HPI. CURRENT MEDICATIONS: 1. Gabapentin 900 mg p.o. t.i.d. 2. Lasix 40 mg p.o. q.a.m. 3. Spironolactone 25 mg p.o. daily. 4. BuSpar 30 mg p.o. b.i.d. 5. Fluoxetine 40 mg p.o. daily. 6. Aspirin 325 mg daily. 7. Dexilant 60 mg p.o. at bedtime. 8. Ropinirole 0.5 mg p.o. daily. 9. Tizanidine p.r.n. PHYSICAL EXAMINATION: VITAL SIGNS: On admission, blood pressure 129/71, pulse 117, respiratory rate is 24, temperature 103 degrees Fahrenheit, O2 saturation 96% on 2 L/minute by nasal cannula. GENERAL APPEARANCE: This is a 73-year-old female, alert and oriented x3, pleasant, conversant, in no acute distress. HEENT: Pupils are equal, round, reactive to light and accommodation. Extraocular muscles are intact. No scleral icterus. No conjunctival injection. Nares patent. OP is clear. Oral mucosa dry. NECK: Supple. No cervical adenopathy. No thyromegaly. No carotid bruits. No JVD appreciated. Cervical spine with full active and passive range of motion. No meningeal signs noted. CHEST: Diminished breath sounds in the left lung base. CARDIOVASCULAR: S1, S2 without noted murmur, rub, or gallop. ABDOMEN: Obese, soft, nontender, and nondistended. Bowel sounds are positive in all 4 quadrants. There is no hepatosplenomegaly. No abdominal bruits. No rebound or guarding appreciated. EXTREMITIES: Warm and dry with fair turgor. No clubbing, cyanosis, or asymmetric edema appreciated. Pulses are palpable distally at the dorsalis pedis, posterior tibial, and popliteal arteries bilaterally. Capillary refill less than 2 seconds. NEUROLOGIC: Cranial nerves 2 through 12 are grossly intact. No focal or lateralizing signs appreciated. PERTINENT LABORATORY AND X-RAY FINDINGS: Sodium 138, potassium 4.4, chloride 105, CO2 of 23, BUN 18, creatinine 1.42, estimated GFR of 36, glucose 80, calcium 9.0. Lactic acid level 2.8. AST 21, ALT of 7, alkaline phosphatase 37. CBC showed a white blood cell count of 11.4, hemoglobin 12, hematocrit 38, platelet count 361 with 93% neutrophils. Influenza A and B antigen dated 02/10/2019, negative. Portable chest x-ray dated 02/10/2019 showed left-sided infiltrate concerning for pneumonia. EKG dated 02/10/2019 by my interpretation shows sinus tachycardia with heart rates in the 110s. Normal R-wave progression noted in the precordial leads. No acute ST-T wave changes appreciated. ASSESSMENT AND PLAN: 1. Sepsis secondary to pneumonia. The patient will be admitted to the medical floor. We will continue Rocephin 2 g IV daily with additional Zithromax 500 mg IV daily. Continue oxygen supplementation to maintain O2 saturations greater than or equal to 90%. Influenza and pneumonia vaccination current. 2. Left mid lung zone bacterial pneumonia. Suspect gram-positive cocci. See #1 above. Continue supportive management. Oxygen p.r.n. 3. Chronic kidney disease, stage 3. Avoid nephrotoxic agents and limit contrast exposure. Continue intravenous normal saline at 100 mL/hour. Repeat creatinine in the a.m. 4. Chronic pain syndrome. We will confirm home regimen and resume as clinically feasible. Toradol 30 mg IV q.6 hours p.r.n. 5. Prophylaxis. SCDs while in bed. Pepcid 20 mg p.o. b.i.d. PT evaluation for functional assessment. 6. Code status is full. Surrogate medical decision maker is patient's daughter. Job ID: [id number]
[2019-02-10] MEDS: Acetaminophen/Codeine 30-300mg Tablet PO PRN (21:42)
[2019-02-10] MEDS: busPIRone HCl 10 MG TAB PO SCH (21:44)
[2019-02-10] MEDS: rOPINIRole HCl 0.5 MG TAB PO SCH (21:44)
[2019-02-10] MEDS: Famotidine 20 MG TAB PO SCH (21:44)
[2019-02-10] MEDS: Gabapentin 300 MG CAP PO SCH (21:44)
[2019-02-10] MEDS: hydrOXYzine 25 MG TAB PO SCH (21:44)
[2019-02-10] MEDS: Sodium Chloride 0.9% 1,000 ML IV SCH (21:45)
[2019-02-10] MEDS ORDERED: traMADol HCl 50 MG TAB PO SCH (23:30)
[2019-02-11] MEDS: Acetaminophen/Codeine 30-300mg Tablet PO PRN ×4 (03:02→22:13)
[2019-02-11 06:10] LABS: Anion Gap 10 mmol/L (10-20); BUN (Urea Nitrogen) 19 mg/dL (9.8-20.1); Calc. Creatinine Clearance 58 mL/min (70-130); Calcium 7.6 mg/dL (7.8-10.44); Carbon Dioxide 24 mmol/L (23-31); Chloride 110 mmol/L (98-107); Estimated GFR-MDRD 42; Glucose 89 mg/dL (83-110); Potassium 4.1 mmol/L (3.5-5.1); Sodium 140 mmol/L (136-145)
[2019-02-11 06:14] LABS: Band 31 % (5-11); Hemoglobin 9.4 g/dL (12.0-16.0); Lymphocytes 6 % (21-51); MDiff Complete? YES; Mean Corpuscular HGB CONC 30.7 g/dL (32.0-36.0); Mean Corpuscular Hemoglobin 26.9 pg (27.0-31.0); Mean Corpuscular Volume 87.7 fL (78.0-98.0); Mean Platelet Volume 6.2 fL (7.4-10.4); Monocytes 4 % (0-10); Neutrophil 59 % (42-75); Platelet Count 324 thou/uL (130-400); RBC Distribution Width 15.4 % (11.5-14.5); White Blood Cell (WBC) Count 21.7 thou/uL (4.8-10.8)
[2019-02-11] MEDS: Sodium Chloride 0.9% 1,000 ML IV SCH ×2 (08:25→17:48)
[2019-02-11] MEDS: FLUoxetine HCl 20 MG CAP PO SCH (08:29)
[2019-02-11] MEDS: busPIRone HCl 10 MG TAB PO SCH ×2 (08:29→22:11)
[2019-02-11] MEDS: Famotidine 20 MG TAB PO SCH ×2 (08:30→22:10)
[2019-02-11] MEDS: Gabapentin 300 MG CAP PO SCH ×3 (08:30→22:11)
[2019-02-11] MEDS: hydrOXYzine 25 MG TAB PO SCH ×3 (08:30→22:23)
[2019-02-11] MEDS: cefTRIAXone\\ROCEPHIN 2 GM in Sodium Chloride 0.9% 100 ML IVPB SCH (15:10)
[2019-02-11] MEDS: Azithromycin 500 MG in Sodium Chloride 0.9% 250 ML 250 ML IVPB SCH (17:44)
[2019-02-11] MEDS: Acetaminophen 500 MG TAB PO PRN (17:52)
--- NOTE | 2019-02-11 18:06 | PDOC.HOSPP ---
- Subjective Encounter Date: 02/11/19 Encounter Time: 18:00 Subjective: f/u for bacterial PNA involving L-side. Still feels weak, SOB and intermittent chills. - Objective Vital Signs & Weight: Vital Signs (12 hours) Temp Pulse Resp BP Pulse Ox 02/11/19 09:02 98.8 F 87 20 99/62 98 02/11/19 08:25 98 Weight Admit Weight 209 lb 7.026 oz Weight 209 lb 7.026 oz I&O: 02/10/19 02/11/19 02/12/19 06:59 06:59 06:59 Intake Total 1330 Output Total 300 320 Balance 1030 -320 Result Diagrams: 02/11/19 04:54 02/11/19 04:54 Additional Labs: Microbiology 02/10/19 16:00 Nasal swab Influenza Types A,B Direct EIA - Final 02/10/19 16:00 Urine Straight Catheter Urine Culture - Preliminary NO GROWTH AT 24 HOURS 02/10/19 15:59 Venous blood - Right Hand Blood Culture - Preliminary Specimen has been received and culture in progress. No Growth to date. 02/10/19 15:57 Venous blood - Left Arm Blood Culture - Preliminary Specimen has been received and culture in progress. No Growth to date. Laboratory Tests 02/10/19 02/10/19 02/10/19 15:47 15:49 15:57 WBC 11.4 H Neutrophils % 93.2 H Neutrophils % (Manual) Band Neuts % (Manual) Creatinine 1.42 H Estimated GFR (MDRD) 36 Lactic Acid 2.8 H 02/10/19 02/11/19 20:00 04:54 WBC Neutrophils % Neutrophils % (Manual) 59 Band Neuts % (Manual) 31 H Creatinine Estimated GFR (MDRD) Lactic Acid 1.5 Radiology Reviewed by me: Yes (PCXR - L-lobar infiltrate/PNA) Hospitalist ROS - Medication Medications: Active Medications Generic Name Dose Route Start Last Admin Trade Name Freq PRN Reason Stop Dose Admin Acetaminophen 1,000 mg 02/10/19 19:16 02/11/19 17:52 Tylenol PO 1,000 mg Q6H PRN Administration Mild Pain (1-3) Acetaminophen/Codeine Phosphate 1 tab 02/10/19 21:03 02/11/19 12:50 Tylenol #3 PO 1 tab Q4HR PRN Administration Moderate to Severe Pain (6-10) Buspirone HCl 30 mg 02/10/19 21:00 02/11/19 08:29 Buspar PO 30 mg BID HANNAH Administration Famotidine 20 mg 02/10/19 21:00 02/11/19 08:30 Pepcid PO 20 mg BID HANNAH Administration Fluoxetine HCl 40 mg 02/11/19 09:00 02/11/19 08:29 Prozac PO 40 mg DAILY HANNAH Administration Gabapentin 900 mg 02/10/19 21:00 02/11/19 15:10 Neurontin PO 900 mg TID HANNAH Administration Hydroxyzine HCl 50 mg 02/10/19 21:00 02/11/19 15:10 Atarax PO 50 mg TID HANNAH Administration Azithromycin 500 mg/ Sodium 250 mls @ 250 mls/hr 02/11/19 17:00 02/11/19 17: 44 Chloride IVPB 250 mls 1700 HANNAH Administration Ceftriaxone Sodium 2 gm/ 100 mls @ 200 mls/hr 02/11/19 16:00 02/11/19 15:10 Sodium Chloride IVPB 100 mls 1600 HANNAH Administration Sodium Chloride 1,000 mls @ 100 mls/hr 02/10/19 19:16 02/11/19 17:48 Normal Saline 0.9% IV 1,000 mls .Q10H HANNAH Administration Ropinirole HCl 0.5 mg 02/10/19 21:00 02/10/19 21:44 Requip PO 0.5 mg HS HANNAH Administration - Exam General Appearance: NAD, awake alert Eye: PERRL, anicteric sclera ENT: normocephalic atraumatic, no oropharyngeal lesions Neck: supple, symmetric, no JVD, no thyromegaly, no lymphadenopathy Heart: RRR, no murmur, no gallops, no rubs, normal peripheral pulses Respiratory: rhonchi, wheezes Respiratory - other findings: diminished in L hemithorax Gastrointestinal: soft, non-tender, non-distended, normal bowel sounds, no palpable masses Extremities: no cyanosis, no clubbing, no edema Skin: normal turgor, no lesions Neurological: cranial nerve grossly intact, no new deficit Musculoskeletal: normal tone, generalized weakness Psychiatric: normal affect, A&O x 3 Hosp A/P (1) Sepsis due to pneumonia Code(s): J18.9 - PNEUMONIA, UNSPECIFIED ORGANISM; A41.9 - SEPSIS, UNSPECIFIED ORGANISM Status: Acute Plan: Continue IV abx with Rocephin, Zithromax, add Levaquin today, continue supportive mgmt (2) Bacterial pneumonia Code(s): J15.9 - UNSPECIFIED BACTERIAL PNEUMONIA Status: Acute Plan: See above in #1, add Duonebs, Robitussin DM (3) CKD (chronic kidney disease), stage III Code(s): N18.3 - CHRONIC KIDNEY DISEASE, STAGE 3 (MODERATE) Status: Chronic Plan: Avoid nephrotoxic medications and limit contrast exposure, serial creatinine (4) Chronic pain Code(s): G89.29 - OTHER CHRONIC PAIN Status: Chronic Qualifiers: Chronic pain type: chronic pain syndrome Qualified Code(s): G89.4 - Chronic pain syndrome Plan: Continue home pain regimen, PT for mobilization - Plan continue antibiotics, PT/OT, social work professor, respiratory therapy, out of bed/ ambulate, DVT proph w/SCDs Stable currently Continue Rocephin/Zithromax Add Levaquin 500mg IV daily Add Duonebs q4h Add Robitussin DM PT for mobilization AM lab: BMP, CBC
[2019-02-11] MEDS ORDERED: Magnesium Oxide 250 MG TAB PO SCH (21:45)
[2019-02-11] MEDS: rOPINIRole HCl 0.5 MG TAB PO SCH (22:10)
[2019-02-12 05:00] LABS: Band 9 % (5-11); Hemoglobin 9.6 g/dL (12.0-16.0); Lymphocytes 10 % (21-51); MDiff Complete? YES; Mean Corpuscular HGB CONC 31.5 g/dL (32.0-36.0); Mean Corpuscular Volume 88.9 fL (78.0-98.0); Mean Platelet Volume 6.8 fL (7.4-10.4); Monocytes 7 % (0-10); Neutrophil 74 % (42-75); Platelet Count 288 thou/uL (130-400); RBC Distribution Width 15.4 % (11.5-14.5); Red Blood Cell (RBC) Count 3.42 mill/uL (4.20-5.40); White Blood Cell (WBC) Count 19.3 thou/uL (4.8-10.8)
[2019-02-12] MEDS: Sodium Chloride 0.9% 1,000 ML IV SCH ×3 (05:35→15:19)
[2019-02-12 05:40] LABS: Anion Gap 9 mmol/L (10-20); BUN (Urea Nitrogen) 18 mg/dL (9.8-20.1); Calc. Creatinine Clearance 59 mL/min (70-130); Calcium 8.1 mg/dL (7.8-10.44); Carbon Dioxide 22 mmol/L (23-31); Chloride 108 mmol/L (98-107); Estimated GFR-MDRD 42; Glucose 98 mg/dL (83-110); Potassium 4.2 mmol/L (3.5-5.1); Sodium 135 mmol/L (136-145)
[2019-02-12] MEDS: Acetaminophen/Codeine 30-300mg Tablet PO PRN ×2 (05:47→13:21)
[2019-02-12] MEDS: busPIRone HCl 10 MG TAB PO SCH ×2 (07:53→20:49)
[2019-02-12] MEDS: FLUoxetine HCl 20 MG CAP PO SCH (07:53)
[2019-02-12] MEDS: Gabapentin 300 MG CAP PO SCH ×3 (07:53→20:49)
[2019-02-12] MEDS: Famotidine 20 MG TAB PO SCH ×2 (07:54→20:49)
[2019-02-12] MEDS: hydrOXYzine 25 MG TAB PO SCH ×3 (07:54→20:49)
[2019-02-12] MEDS ORDERED: Enoxaparin Sodium 40 MG/0.4 ML SYRINGE SC SCH (12:45)
--- NOTE | 2019-02-12 12:47 | PDOC.HOSPP ---
- Subjective Encounter Date: 02/12/19 Encounter Time: 12:35 Subjective: f/u for bacterial L-sided PNA. Increased cough and some chest pain. Feels weak but ambulated with PT today. - Objective Vital Signs & Weight: Vital Signs (12 hours) Temp Pulse Resp BP Pulse Ox 02/12/19 12:02 98.8 F 89 16 102/66 92 L 02/12/19 11:19 96 16 93 L 02/12/19 10:22 91 20 95 02/12/19 08:15 98.3 F 67 20 98/59 L 92 L 02/12/19 06:54 79 18 96 02/12/19 03:46 99.0 F 75 16 92/56 L 98 Weight Admit Weight 209 lb 7.026 oz Weight 209 lb 7.026 oz I&O: 02/11/19 02/12/19 02/13/19 06:59 06:59 06:59 Intake Total 1330 1800 Output Total 300 720 Balance 1030 1080 Result Diagrams: 02/12/19 04:20 02/12/19 04:20 Additional Labs: Microbiology 02/10/19 16:00 Nasal swab Influenza Types A,B Direct EIA - Final 02/10/19 16:00 Urine Straight Catheter Urine Culture - Preliminary NO GROWTH AT 24 HOURS 02/10/19 15:59 Venous blood - Right Hand Blood Culture - Preliminary Specimen has been received and culture in progress. No Growth to date. 02/10/19 15:57 Venous blood - Left Arm Blood Culture - Preliminary Specimen has been received and culture in progress. No Growth to date. Laboratory Tests 02/10/19 02/10/19 02/10/19 15:47 15:49 15:57 WBC 11.4 H Neutrophils % 93.2 H Neutrophils % (Manual) Band Neuts % (Manual) Creatinine 1.42 H Estimated GFR (MDRD) 36 Lactic Acid 2.8 H 02/10/19 02/11/19 20:00 04:54 WBC Neutrophils % Neutrophils % (Manual) 59 Band Neuts % (Manual) 31 H Creatinine Estimated GFR (MDRD) Lactic Acid 1.5 Hospitalist ROS - Medication Medications: Active Medications Generic Name Dose Route Start Last Admin Trade Name Freq PRN Reason Stop Dose Admin Acetaminophen 1,000 mg 02/10/19 19:16 02/11/19 17:52 Tylenol PO 1,000 mg Q6H PRN Administration Mild Pain (1-3) Acetaminophen/Codeine Phosphate 1 tab 02/10/19 21:03 02/12/19 05:47 Tylenol #3 PO 1 tab Q4HR PRN Administration Moderate to Severe Pain (6-10) Albuterol/Ipratropium 3 ml 02/11/19 19:00 02/12/19 10:22 Duoneb NEB 3 ml [id number] HANNAH Administration Buspirone HCl 30 mg 02/10/19 21:00 02/12/19 07:53 Buspar PO 30 mg BID HANNAH Administration Famotidine 20 mg 02/10/19 21:00 02/12/19 07:54 Pepcid PO 20 mg BID HANNAH Administration Fluoxetine HCl 40 mg 02/11/19 09:00 02/12/19 07:53 Prozac PO 40 mg DAILY HANNAH Administration Gabapentin 900 mg 02/10/19 21:00 02/12/19 07:53 Neurontin PO 900 mg TID HANNAH Administration Hydroxyzine HCl 50 mg 02/10/19 21:00 02/12/19 07:54 Atarax PO 50 mg TID HANNAH Administration Azithromycin 500 mg/ Sodium 250 mls @ 250 mls/hr 02/11/19 17:00 02/11/19 17: 44 Chloride IVPB 250 mls 1700 HANNAH Administration Ceftriaxone Sodium 2 gm/ 100 mls @ 200 mls/hr 02/11/19 16:00 02/11/19 15:10 Sodium Chloride IVPB 100 mls 1600 HANNAH Administration Levofloxacin 500 mg/ Device 100 mls @ 100 mls/hr 02/11/19 18:00 02/11/19 22: 12 IVPB 100 mls Q24HR HANNAH Administration Ropinirole HCl 0.5 mg 02/10/19 21:00 02/11/19 22:10 Requip PO 0.5 mg HS HANNAH Administration - Exam General Appearance: NAD, awake alert Eye: PERRL, anicteric sclera ENT: normocephalic atraumatic Neck: supple, symmetric, no JVD, no thyromegaly, no lymphadenopathy Heart: RRR, no murmur, no gallops, no rubs, normal peripheral pulses Respiratory: rhonchi Respiratory - other findings: diminished in L base Gastrointestinal: soft, non-tender, non-distended, normal bowel sounds Extremities: no cyanosis, no clubbing, no edema Skin: normal turgor, no lesions Neurological: cranial nerve grossly intact, no new deficit Musculoskeletal: normal tone Psychiatric: normal affect, A&O x 3 Hosp A/P (1) Sepsis due to pneumonia Code(s): J18.9 - PNEUMONIA, UNSPECIFIED ORGANISM; A41.9 - SEPSIS, UNSPECIFIED ORGANISM Status: Acute Plan: Continue Rocephin/Zithromax/Levaquin, decrease IVF's 50ml/h (2) Bacterial pneumonia Code(s): J15.9 - UNSPECIFIED BACTERIAL PNEUMONIA Status: Acute Plan: Continue Duonebs, mucolytics (3) CKD (chronic kidney disease), stage III Code(s): N18.3 - CHRONIC KIDNEY DISEASE, STAGE 3 (MODERATE) Status: Chronic Plan: Stable, continue low-volume IVF's, serial creatinine (4) Chronic pain Code(s): G89.29 - OTHER CHRONIC PAIN Status: Chronic Qualifiers: Chronic pain type: chronic pain syndrome Qualified Code(s): G89.4 - Chronic pain syndrome - Plan continue antibiotics, PT/OT, social science manager, respiratory therapy, out of bed/ ambulate, DVT proph w/SCDs Stable currently Continue Rocephin/Zithromax Add Levaquin 500mg IV daily Add Duonebs q4h Add Robitussin DM PT for mobilization Lovenox 30mg SC daily AM lab: BMP, CBC
[2019-02-12] MEDS: Guaifenesin DM 100-10/5 ML UDCUP PO PRN (13:16)
[2019-02-12] MEDS: cefTRIAXone\\ROCEPHIN 2 GM in Sodium Chloride 0.9% 100 ML IVPB SCH (15:17)
[2019-02-12] MEDS: Azithromycin 500 MG in Sodium Chloride 0.9% 250 ML 250 ML IVPB SCH (16:58)
[2019-02-12] MEDS: rOPINIRole HCl 0.5 MG TAB PO SCH (20:49)
[2019-02-13] MEDS: Acetaminophen 500 MG TAB PO PRN (00:09)
[2019-02-13 06:51] LABS: Hemoglobin 9.5 g/dL (12.0-16.0); Mean Corpuscular HGB CONC 31.3 g/dL (32.0-36.0); Mean Corpuscular Hemoglobin 27.2 pg (27.0-31.0); Mean Corpuscular Volume 87.1 fL (78.0-98.0); Mean Platelet Volume 6.5 fL (7.4-10.4); Platelet Count 298 thou/uL (130-400); RBC Distribution Width 15.2 % (11.5-14.5); Red Blood Cell (RBC) Count 3.48 mill/uL (4.20-5.40); White Blood Cell (WBC) Count 11.8 thou/uL (4.8-10.8)
[2019-02-13 07:05] LABS: Anion Gap 10 mmol/L (10-20); BUN (Urea Nitrogen) 12 mg/dL (9.8-20.1); Calc. Creatinine Clearance 77 mL/min (70-130); Calcium 8.6 mg/dL (7.8-10.44); Carbon Dioxide 20 mmol/L (23-31); Chloride 112 mmol/L (98-107); Estimated GFR-MDRD 57; Glucose 90 mg/dL (83-110); Potassium 4.1 mmol/L (3.5-5.1); Sodium 138 mmol/L (136-145)
[2019-02-13] MEDS: Benzonatate 100 MG CAP PO PRN (08:15)
[2019-02-13] MEDS: FLUoxetine HCl 20 MG CAP PO SCH (08:16)
[2019-02-13] MEDS: hydrOXYzine 25 MG TAB PO SCH ×3 (08:16→21:14)
[2019-02-13] MEDS: busPIRone HCl 10 MG TAB PO SCH ×2 (08:16→21:13)
[2019-02-13] MEDS: Famotidine 20 MG TAB PO SCH ×2 (08:17→21:14)
[2019-02-13] MEDS: Gabapentin 300 MG CAP PO SCH ×3 (08:17→21:13)
[2019-02-13] MEDS: Enoxaparin Sodium 40 MG/0.4 ML SYRINGE SC SCH (08:18)
[2019-02-13 08:28] LABS: Band 6 % (5-11); Eosinophils 2 % (0-10); Hypochromia SLIGHT = 6-15 cells (100X) (0-5/hpf); Lymphocytes 13 % (21-51); MDiff Complete? YES; Monocytes 3 % (0-10); Neutrophil 76 % (42-75); Platelet Morphology Comment Appears Adequate; Polychromasia SLIGHT = 2-3 cells (100X) (0-2/hpf)
[2019-02-13] MEDS: Sodium Chloride 0.9% 1,000 ML IV SCH ×2 (08:33→14:44)
[2019-02-13] MEDS: Fluticasone Propionate Nasal Spray 16 gm Bottle NASAL SCH (09:45)
--- NOTE | 2019-02-13 12:34 | PDOC.HOSPP ---
- Subjective Encounter Date: 02/13/19 Encounter Time: 12:30 Subjective: f/u for bacterial pneumonia on Levaquin/Zithromax/Rocephin. Overall feels better. - Objective Vital Signs & Weight: Vital Signs (12 hours) Temp Pulse Resp BP Pulse Ox 02/13/19 10:51 98.9 F 88 20 126/75 95 02/13/19 08:30 92 L 02/13/19 07:08 97.7 F 92 18 123/72 92 L 02/13/19 06:15 88 93 L 02/13/19 04:00 98.6 F 88 20 113/69 92 L Weight Admit Weight 209 lb 7.026 oz Weight 209 lb 7.026 oz I&O: 02/12/19 02/13/19 02/14/19 06:59 06:59 06:59 Intake Total 1800 1693 Output Total 720 1750 Balance 1080 -57 Result Diagrams: 02/13/19 06:22 02/13/19 06:22 Additional Labs: Microbiology 02/10/19 16:00 Nasal swab Influenza Types A,B Direct EIA - Final 02/10/19 16:00 Urine Straight Catheter Urine Culture - Preliminary NO GROWTH AT 24 HOURS 02/10/19 15:59 Venous blood - Right Hand Blood Culture - Preliminary Specimen has been received and culture in progress. No Growth to date. 02/10/19 15:57 Venous blood - Left Arm Blood Culture - Preliminary Specimen has been received and culture in progress. No Growth to date. Laboratory Tests 02/10/19 02/10/19 02/10/19 15:47 15:49 15:57 WBC 11.4 H Neutrophils % 93.2 H Neutrophils % (Manual) Band Neuts % (Manual) Creatinine 1.42 H Estimated GFR (MDRD) 36 Lactic Acid 2.8 H 02/10/19 02/11/19 20:00 04:54 WBC Neutrophils % Neutrophils % (Manual) 59 Band Neuts % (Manual) 31 H Creatinine Estimated GFR (MDRD) Lactic Acid 1.5 Hospitalist ROS - Medication Medications: Active Medications Generic Name Dose Route Start Last Admin Trade Name Freq PRN Reason Stop Dose Admin Acetaminophen 1,000 mg 02/10/19 19:16 02/13/19 00:09 Tylenol PO 1,000 mg Q6H PRN Administration Mild Pain (1-3) Acetaminophen/Codeine Phosphate 1 tab 02/10/19 21:03 02/12/19 13:21 Tylenol #3 PO 1 tab Q4HR PRN Administration Moderate to Severe Pain (6-10) Albuterol/Ipratropium 3 ml 02/11/19 19:00 02/13/19 10:23 Duoneb NEB Not Given [id number] HANNAH Benzonatate 100 mg 02/10/19 19:16 02/13/19 08:15 Tessalon PO 100 mg Q6H PRN Administration Cough Buspirone HCl 30 mg 02/10/19 21:00 02/13/19 08:16 Buspar PO 30 mg BID HANNAH Administration Enoxaparin Sodium 40 mg 02/13/19 09:00 02/13/19 08:18 Lovenox SC 40 mg 0900 HANNAH Administration Famotidine 20 mg 02/10/19 21:00 02/13/19 08:17 Pepcid PO 20 mg BID HANNAH Administration Fluoxetine HCl 40 mg 02/11/19 09:00 02/13/19 08:16 Prozac PO 40 mg DAILY HANNAH Administration Gabapentin 900 mg 02/10/19 21:00 02/13/19 08:17 Neurontin PO 900 mg TID HANNAH Administration Guaifenesin/Dextromethorphan 10 ml 02/11/19 18:04 02/12/19 13:16 Robitussin Dm PO 10 ml Q6H PRN Administration Cough Hydroxyzine HCl 50 mg 02/10/19 21:00 02/13/19 08:16 Atarax PO 50 mg TID HANNAH Administration Azithromycin 500 mg/ Sodium 250 mls @ 250 mls/hr 02/11/19 17:00 02/12/19 16: 58 Chloride IVPB 250 mls 1700 HANNAH Administration Ceftriaxone Sodium 2 gm/ 100 mls @ 200 mls/hr 02/11/19 16:00 02/12/19 15:17 Sodium Chloride IVPB 100 mls 1600 HANNAH Administration Levofloxacin 500 mg/ Device 100 mls @ 100 mls/hr 02/11/19 18:00 02/12/19 18: 36 IVPB 100 mls Q24HR HANNAH Administration Sodium Chloride 1,000 mls @ 50 mls/hr 02/12/19 12:34 02/13/19 08:33 Normal Saline 0.9% IV Not Given .Q20H HANNAH Ropinirole HCl 0.5 mg 02/10/19 21:00 02/12/19 20:49 Requip PO 0.5 mg HS HANNAH Administration - Exam General Appearance: NAD, awake alert Eye: PERRL, anicteric sclera ENT: normocephalic atraumatic, no oropharyngeal lesions Neck: supple, symmetric, no JVD, no thyromegaly, no lymphadenopathy Heart: RRR, no murmur, no gallops, no rubs, normal peripheral pulses Respiratory: no tachypnea Respiratory - other findings: diminished in L field, occasional rhonchi Gastrointestinal: soft, non-tender, non-distended, normal bowel sounds, no palpable masses Extremities: no cyanosis, no clubbing, no edema Skin: normal turgor, no lesions Neurological: cranial nerve grossly intact, no new deficit Musculoskeletal: normal tone Psychiatric: A&O x 3 Hosp A/P (1) Sepsis due to pneumonia Code(s): J18.9 - PNEUMONIA, UNSPECIFIED ORGANISM; A41.9 - SEPSIS, UNSPECIFIED ORGANISM Status: Acute Plan: Improved, continue tx as outlined below (2) Bacterial pneumonia Code(s): J15.9 - UNSPECIFIED BACTERIAL PNEUMONIA Status: Acute Plan: Continue Levaquin/Zithromax/Rocephin another 24h then de-escalate therapy, Duonebs, mucolytics, O2 (3) CKD (chronic kidney disease), stage III Code(s): N18.3 - CHRONIC KIDNEY DISEASE, STAGE 3 (MODERATE) Status: Chronic Plan: Improved, continue low-volume IVF's, avoid nephrotoxic meds and limit contrast (4) Chronic pain Code(s): G89.29 - OTHER CHRONIC PAIN Status: Chronic Qualifiers: Chronic pain type: chronic pain syndrome Qualified Code(s): G89.4 - Chronic pain syndrome - Plan continue antibiotics, PT/OT, social economist, respiratory therapy, out of bed/ ambulate, DVT proph w/SCDs Stable currently Continue Rocephin/Zithromax Add Levaquin 500mg IV daily Add Duonebs q4h Add Robitussin DM PT for mobilization Lovenox 30mg SC daily De-escalate IV abx regimen in 24h AM lab: CBC
[2019-02-13] MEDS: Guaifenesin DM 100-10/5 ML UDCUP PO PRN (14:52)
[2019-02-13] MEDS: cefTRIAXone\\ROCEPHIN 2 GM in Sodium Chloride 0.9% 100 ML IVPB SCH (15:45)
[2019-02-13] MEDS: Azithromycin 500 MG in Sodium Chloride 0.9% 250 ML 250 ML IVPB SCH (16:15)
[2019-02-13] MEDS: Acetaminophen/Codeine 30-300mg Tablet PO PRN (18:13)
[2019-02-13] MEDS: rOPINIRole HCl 0.5 MG TAB PO SCH (21:14)
[2019-02-14 06:07] LABS: Band 2 % (5-11); Eosinophils 5 % (0-10); Hemoglobin 8.9 g/dL (12.0-16.0); Lymphocytes 15 % (21-51); MDiff Complete? YES; Mean Corpuscular HGB CONC 32.4 g/dL (32.0-36.0); Mean Corpuscular Hemoglobin 28.1 pg (27.0-31.0); Mean Corpuscular Volume 86.7 fL (78.0-98.0); Mean Platelet Volume 6.4 fL (7.4-10.4); Monocytes 5 % (0-10); Neutrophil 73 % (42-75); Platelet Count 284 thou/uL (130-400); RBC Distribution Width 15.2 % (11.5-14.5); Red Blood Cell (RBC) Count 3.16 mill/uL (4.20-5.40); White Blood Cell (WBC) Count 7.9 thou/uL (4.8-10.8)
[2019-02-14] MEDS: Sodium Chloride 0.9% 1,000 ML IV SCH (06:16)
[2019-02-14] MEDS: busPIRone HCl 10 MG TAB PO SCH ×2 (08:23→20:54)
[2019-02-14] MEDS: Gabapentin 300 MG CAP PO SCH ×3 (08:24→20:56)
[2019-02-14] MEDS: FLUoxetine HCl 20 MG CAP PO SCH (08:25)
[2019-02-14] MEDS: Benzonatate 100 MG CAP PO PRN (08:25)
[2019-02-14] MEDS: hydrOXYzine 25 MG TAB PO SCH ×3 (08:25→20:55)
[2019-02-14] MEDS: Famotidine 20 MG TAB PO SCH ×2 (08:25→20:55)
[2019-02-14] MEDS: Enoxaparin Sodium 40 MG/0.4 ML SYRINGE SC SCH (08:26)
[2019-02-14] MEDS: Fluticasone Propionate Nasal Spray 16 gm Bottle NASAL SCH (08:26)
[2019-02-14] MEDS: Acetaminophen/Codeine 30-300mg Tablet PO PRN (08:31)
[2019-02-14] MEDS: Ondansetron ODT 4 MG TAB PO PRN (08:37)
[2019-02-14] MEDS: Saccharomyces boulardii 250 MG CAP PO SCH (20:55)
[2019-02-14] MEDS: rOPINIRole HCl 0.5 MG TAB PO SCH (20:55)
[2019-02-14] MEDS: Betamethasone 0.1% Cream 15 GM TUBE TOP SCH (20:59)
--- NOTE | 2019-02-14 23:02 | PDOC.HOSPP ---
- Subjective Encounter Date: 02/14/19 Encounter Time: 14:05 Subjective: f/u for bacterial PNA on Rocephin/Zithromax/Levaquin. Overall feeling ok and has residual coughing. Feels weak and fatigued. - Objective Vital Signs & Weight: Vital Signs (12 hours) Temp Pulse Resp BP Pulse Ox 02/14/19 20:00 96 02/14/19 19:02 99.1 F 94 20 105/60 96 02/14/19 18:03 84 16 95 02/14/19 16:00 99.3 F 100 20 113/73 92 L 02/14/19 14:40 91 18 92 L 02/14/19 13:33 89 20 109/71 92 L 02/14/19 11:43 99.2 F 98 18 99/64 91 L Weight Admit Weight 209 lb 7.026 oz Weight 209 lb 7.026 oz I&O: 02/13/19 02/14/19 02/15/19 06:59 06:59 06:59 Intake Total 1693 1650 720 Output Total 1750 1300 600 Balance -57 350 120 Result Diagrams: 02/14/19 04:46 02/13/19 06:22 Additional Labs: Microbiology 02/10/19 16:00 Nasal swab Influenza Types A,B Direct EIA - Final 02/10/19 16:00 Urine Straight Catheter Urine Culture - Preliminary NO GROWTH AT 24 HOURS 02/10/19 15:59 Venous blood - Right Hand Blood Culture - Preliminary Specimen has been received and culture in progress. No Growth to date. 02/10/19 15:57 Venous blood - Left Arm Blood Culture - Preliminary Specimen has been received and culture in progress. No Growth to date. Laboratory Tests 02/10/19 02/10/19 02/10/19 15:47 15:49 15:57 WBC 11.4 H Neutrophils % 93.2 H Neutrophils % (Manual) Band Neuts % (Manual) Creatinine 1.42 H Estimated GFR (MDRD) 36 Lactic Acid 2.8 H 02/10/19 02/11/19 20:00 04:54 WBC Neutrophils % Neutrophils % (Manual) 59 Band Neuts % (Manual) 31 H Creatinine Estimated GFR (MDRD) Lactic Acid 1.5 Hospitalist ROS - Medication Medications: Active Medications Generic Name Dose Route Start Last Admin Trade Name Freq PRN Reason Stop Dose Admin Acetaminophen 1,000 mg 02/10/19 19:16 02/13/19 00:09 Tylenol PO 1,000 mg Q6H PRN Administration Mild Pain (1-3) Acetaminophen/Codeine Phosphate 1 tab 02/10/19 21:03 02/14/19 08:31 Tylenol #3 PO 1 tab Q4HR PRN Administration Moderate to Severe Pain (6-10) Albuterol/Ipratropium 3 ml 02/11/19 19:00 02/14/19 18:03 Duoneb NEB 3 ml [id number] HANNAH Administration Benzonatate 100 mg 02/10/19 19:16 02/14/19 08:25 Tessalon PO 100 mg Q6H PRN Administration Cough Betamethasone Valerate 0 gm 02/14/19 21:00 02/14/19 20:59 Valisone 0.1% Cream TOP 1 applic BID HANNAH Administration Buspirone HCl 30 mg 02/10/19 21:00 02/14/19 20:54 Buspar PO 30 mg BID HANNAH Administration Enoxaparin Sodium 40 mg 02/13/19 09:00 02/14/19 08:26 Lovenox SC 40 mg 0900 HANNAH Administration Famotidine 20 mg 02/10/19 21:00 02/14/19 20:55 Pepcid PO 20 mg BID HANNAH Administration Fluoxetine HCl 40 mg 02/11/19 09:00 02/14/19 08:25 Prozac PO 40 mg DAILY HANNAH Administration Fluticasone Propionate 0.5 gm 02/13/19 09:00 02/14/19 08:26 Flonase Nasal [place] NASAL 1 spr DAILY HANNAH Administration Gabapentin 900 mg 02/10/19 21:00 02/14/19 20:56 Neurontin PO 900 mg TID HANNAH Administration Guaifenesin/Dextromethorphan 10 ml 02/11/19 18:04 02/13/19 14:52 Robitussin Dm PO 10 ml Q6H PRN Administration Cough Hydroxyzine HCl 50 mg 02/10/19 21:00 02/14/19 20:55 Atarax PO 50 mg TID HANNAH Administration Ondansetron HCl 4 mg 02/10/19 19:16 02/14/19 08:37 Zofran Odt PO 4 mg Q6H PRN Administration Nausea/Vomiting Ropinirole HCl 0.5 mg 02/10/19 21:00 02/14/19 20:55 Requip PO 0.5 mg HS HANNAH Administration Saccharomyces Ludydii 250 mg 02/14/19 21:00 02/14/19 20:55 Florastor PO 250 mg BID HANNAH Administration - Exam General Appearance: NAD, awake alert Eye: PERRL, anicteric sclera ENT: normocephalic atraumatic, no oropharyngeal lesions Neck: supple, symmetric, no JVD, no thyromegaly Heart: RRR, no gallops, no rubs, normal peripheral pulses Respiratory: no wheezes, rhonchi Respiratory - other findings: diminished in L hemithorax Gastrointestinal: soft, non-tender, non-distended, normal bowel sounds, no palpable masses Extremities: no cyanosis, no edema Skin: normal turgor Neurological: cranial nerve grossly intact, no new deficit Musculoskeletal: normal tone, generalized weakness Psychiatric: normal affect, A&O x 3 Hosp A/P (1) Sepsis due to pneumonia Code(s): J18.9 - PNEUMONIA, UNSPECIFIED ORGANISM; A41.9 - SEPSIS, UNSPECIFIED ORGANISM Status: Acute Plan: Improving with IV abx, de-escalate abx coverage today (2) Bacterial pneumonia Code(s): J15.9 - UNSPECIFIED BACTERIAL PNEUMONIA Status: Acute Plan: Continue Levaquin, d/c Rocephin/Zithromax (3) CKD (chronic kidney disease), stage III Code(s): N18.3 - CHRONIC KIDNEY DISEASE, STAGE 3 (MODERATE) Status: Chronic Plan: Avoid nephrotoxic meds and limit contrast exposure (4) Chronic pain Code(s): G89.29 - OTHER CHRONIC PAIN Status: Chronic Qualifiers: Chronic pain type: chronic pain syndrome Qualified Code(s): G89.4 - Chronic pain syndrome - Plan continue antibiotics, PT/OT, health and social care teacher, respiratory therapy, out of bed/ ambulate, DVT proph w/SCDs Stable currently D/C Rocephin/Zithromax Continue Levaquin 500mg po daily Add Duonebs q4h Add Robitussin DM PT for mobilization Lovenox 30mg SC daily AM lab: CBC Likely home in 48h
[2019-02-15] MEDS: Acetaminophen 500 MG TAB PO PRN (08:45)
[2019-02-15] MEDS: Fluticasone Propionate Nasal Spray 16 gm Bottle NASAL SCH (08:45)
[2019-02-15] MEDS: Gabapentin 300 MG CAP PO SCH ×3 (08:46→20:12)
[2019-02-15] MEDS: FLUoxetine HCl 20 MG CAP PO SCH (08:47)
[2019-02-15] MEDS: Famotidine 20 MG TAB PO SCH ×2 (08:48→20:13)
[2019-02-15] MEDS: hydrOXYzine 25 MG TAB PO SCH ×3 (08:48→20:11)
[2019-02-15] MEDS: Spironolactone 25 MG TAB PO SCH (08:48)
[2019-02-15] MEDS: Saccharomyces boulardii 250 MG CAP PO SCH ×2 (08:48→20:13)
[2019-02-15] MEDS: busPIRone HCl 10 MG TAB PO SCH ×2 (08:49→20:11)
[2019-02-15] MEDS: Enoxaparin Sodium 40 MG/0.4 ML SYRINGE SC SCH (08:49)
[2019-02-15] MEDS: Guaifenesin DM 100-10/5 ML UDCUP PO PRN (08:50)
[2019-02-15] MEDS: Betamethasone 0.1% Cream 15 GM TUBE TOP SCH ×2 (08:51→20:13)
[2019-02-15] MEDS ORDERED: Doxepin HCl 25 MG CAP PO SCH (09:00)
--- NOTE | 2019-02-15 09:28 | PDOC.HOSPP ---
- Subjective Encounter Date: 02/15/19 Encounter Time: 09:10 Subjective: f/u for bacterial pneumonia on Levaquin currently. Feels overall better but general weakness. - Objective Vital Signs & Weight: Vital Signs (12 hours) Temp Pulse Resp BP Pulse Ox 02/15/19 07:19 99.1 F 98 18 118/78 91 L 02/15/19 06:55 94 L 02/15/19 06:54 83 16 94 L 02/15/19 04:11 99.5 F 86 16 119/77 92 L 02/15/19 00:32 99.2 F 97 22 H 124/76 93 L Weight Admit Weight 209 lb 7.026 oz Weight 209 lb 7.026 oz I&O: 02/14/19 02/15/19 02/16/19 06:59 06:59 06:59 Intake Total 1650 720 Output Total 1300 600 Balance 350 120 Result Diagrams: 02/14/19 04:46 02/13/19 06:22 Additional Labs: Microbiology 02/10/19 16:00 Nasal swab Influenza Types A,B Direct EIA - Final 02/10/19 16:00 Urine Straight Catheter Urine Culture - Preliminary NO GROWTH AT 24 HOURS 02/10/19 15:59 Venous blood - Right Hand Blood Culture - Preliminary Specimen has been received and culture in progress. No Growth to date. 02/10/19 15:57 Venous blood - Left Arm Blood Culture - Preliminary Specimen has been received and culture in progress. No Growth to date. Laboratory Tests 02/10/19 02/10/19 02/10/19 15:47 15:49 15:57 WBC 11.4 H Neutrophils % 93.2 H Neutrophils % (Manual) Band Neuts % (Manual) Creatinine 1.42 H Estimated GFR (MDRD) 36 Lactic Acid 2.8 H 02/10/19 02/11/19 20:00 04:54 WBC Neutrophils % Neutrophils % (Manual) 59 Band Neuts % (Manual) 31 H Creatinine Estimated GFR (MDRD) Lactic Acid 1.5 Hospitalist ROS - Medication Medications: Active Medications Generic Name Dose Route Start Last Admin Trade Name Freq PRN Reason Stop Dose Admin Acetaminophen 1,000 mg 02/10/19 19:16 02/15/19 08:45 Tylenol PO 1,000 mg Q6H PRN Administration Mild Pain (1-3) Acetaminophen/Codeine Phosphate 1 tab 02/10/19 21:03 02/14/19 08:31 Tylenol #3 PO 1 tab Q4HR PRN Administration Moderate to Severe Pain (6-10) Albuterol/Ipratropium 3 ml 02/11/19 19:00 02/15/19 06:54 Duoneb NEB 3 ml [id number] HANNAH Administration Benzonatate 100 mg 02/10/19 19:16 02/14/19 08:25 Tessalon PO 100 mg Q6H PRN Administration Cough Betamethasone Valerate 0 gm 02/14/19 21:00 02/15/19 08:51 Valisone 0.1% Cream TOP 1 applic BID HANNAH Administration Buspirone HCl 30 mg 02/10/19 21:00 02/15/19 08:49 Buspar PO 30 mg BID HANNAH Administration Doxepin HCl 50 mg 02/15/19 09:00 02/15/19 09:00 [place] PO Not Given DAILY HANNAH Enoxaparin Sodium 40 mg 02/13/19 09:00 02/15/19 08:49 Lovenox SC 40 mg 09 HANNAH Administration Famotidine 20 mg 02/10/19 21:00 02/15/19 08:48 Pepcid PO 20 mg BID HANNAH Administration Fluoxetine HCl 40 mg 02/11/19 09:00 02/15/19 08:47 Prozac PO 40 mg DAILY HANNAH Administration Fluticasone Propionate 0.5 gm 02/13/19 09:00 02/15/19 08:45 Flonase Nasal [place] NASAL 1 spr DAILY HANNAH Administration Gabapentin 900 mg 02/10/19 21:00 02/15/19 08:46 Neurontin PO 900 mg TID HANNAH Administration Guaifenesin/Dextromethorphan 10 ml 02/11/19 18:04 02/15/19 08:50 Robitussin Dm PO 10 ml Q6H PRN Administration Cough Hydroxyzine HCl 50 mg 02/10/19 21:00 02/15/19 08:48 Atarax PO 50 mg TID HANNAH Administration Levofloxacin 500 mg 02/15/19 06:00 02/15/19 06:19 Levaquin PO 500 mg 0600 HANNAH Administration Ondansetron HCl 4 mg 02/10/19 19:16 02/14/19 08:37 Zofran Odt PO 4 mg Q6H PRN Administration Nausea/Vomiting Ropinirole HCl 0.5 mg 02/10/19 21:00 02/14/19 20:55 Requip PO 0.5 mg HS HANNAH Administration Saccharomyces Boulardii 250 mg 02/14/19 21:00 02/15/19 08:48 Florastor PO 250 mg BID HANNAH Administration Spironolactone 25 mg 02/15/19 09:00 02/15/19 08:48 Aldactone PO 25 mg DAILY HANNAH Administration - Exam General Appearance: NAD, awake alert Eye: PERRL, anicteric sclera ENT: normocephalic atraumatic, no oropharyngeal lesions Neck: supple, symmetric, no JVD, no thyromegaly Heart: RRR, no murmur, no gallops, no rubs, normal peripheral pulses Respiratory: normal chest expansion Respiratory - other findings: rhonchi and coarse sounds in L hemithorax Gastrointestinal: soft, non-tender, non-distended, normal bowel sounds, no palpable masses, no hepatomegaly Extremities: no cyanosis, no clubbing Skin: normal turgor, no lesions Neurological: cranial nerve grossly intact, no focal deficits, no new deficit Musculoskeletal: normal tone, generalized weakness Psychiatric: normal affect, A&O x 3 Hosp A/P (1) Sepsis due to pneumonia Code(s): J18.9 - PNEUMONIA, UNSPECIFIED ORGANISM; A41.9 - SEPSIS, UNSPECIFIED ORGANISM Status: Acute Plan: Resolving, continue Levaquin (2) Bacterial pneumonia Code(s): J15.9 - UNSPECIFIED BACTERIAL PNEUMONIA Status: Acute Plan: Improved, continue Incentive spirometry, Duonebs, Levaquin, OOB/ambulate (3) CKD (chronic kidney disease), stage III Code(s): N18.3 - CHRONIC KIDNEY DISEASE, STAGE 3 (MODERATE) Status: Chronic Plan: Stable, continue to monitor (4) Chronic pain Code(s): G89.29 - OTHER CHRONIC PAIN Status: Chronic Qualifiers: Chronic pain type: chronic pain syndrome Qualified Code(s): G89.4 - Chronic pain syndrome - Plan continue antibiotics, PT/OT, certified social workers in health care, respiratory therapy, out of bed/ ambulate, DVT proph w/SCDs Stable currently D/C Rocephin/Zithromax Continue Levaquin 500mg po daily Add Duonebs q4h Add Robitussin DM PT for mobilization Lovenox 30mg SC daily AM lab: H/H CM for HH with PT Home 02/16/19
[2019-02-15] MEDS: Acetaminophen/Codeine 30-300mg Tablet PO PRN (16:49)
[2019-02-15] MEDS: rOPINIRole HCl 0.5 MG TAB PO SCH (20:12)
[2019-02-15] MEDS: Topiramate 25 MG TAB PO SCH (22:39)
[2019-02-16] MEDS: Acetaminophen/Codeine 30-300mg Tablet PO PRN (04:40)
[2019-02-16] MEDS ORDERED: Cepastat Lozenges 1 LOZ PO PRN (09:07)
[2019-02-16] MEDS ORDERED: Loratadine 10 MG TAB PO PRN (09:07)
[2019-02-16] MEDS ORDERED: Loperamide HCl 2 MG CAP PO PRN (09:07)
[2019-02-16] MEDS: Gabapentin 300 MG CAP PO SCH ×3 (09:07→20:30)
[2019-02-16] MEDS ORDERED: Sodium Chloride 0.65% Nasal 44 ML BOT EA NARE PRN (09:07)
[2019-02-16] MEDS ORDERED: Senokot S 8.6-50 MG TAB PO PRN (09:07)
[2019-02-16] MEDS ORDERED: Bisacodyl 10 MG SUPP PR PRN (09:07)
[2019-02-16] MEDS ORDERED: Zolpidem Tartrate 5 MG TAB PO PRN (09:07)
[2019-02-16] MEDS: busPIRone HCl 10 MG TAB PO SCH ×2 (09:09→20:30)
[2019-02-16] MEDS: Saccharomyces boulardii 250 MG CAP PO SCH ×2 (09:09→20:30)
[2019-02-16] MEDS: hydrOXYzine 25 MG TAB PO SCH ×3 (09:09→20:30)
[2019-02-16] MEDS: Famotidine 20 MG TAB PO SCH ×2 (09:10→20:30)
[2019-02-16] MEDS: Spironolactone 25 MG TAB PO SCH (09:11)
[2019-02-16] MEDS: Enoxaparin Sodium 40 MG/0.4 ML SYRINGE SC SCH (09:11)
[2019-02-16] MEDS: Acetaminophen 500 MG TAB PO PRN (09:11)
[2019-02-16] MEDS: FLUoxetine HCl 20 MG CAP PO SCH (09:13)
[2019-02-16] MEDS: Fluticasone Propionate Nasal Spray 16 gm Bottle NASAL SCH (09:17)
[2019-02-16] MEDS: Betamethasone 0.1% Cream 15 GM TUBE TOP SCH ×2 (09:18→20:30)
[2019-02-16] MEDS: Ondansetron ODT 4 MG TAB PO PRN (09:21)
--- NOTE | 2019-02-16 10:56 | PDOC.HOSPP ---
- Subjective Encounter Date: 02/16/19 Encounter Time: 08:20 Subjective: this morning she is not feeling well, has fever, has cough, feels weak - Objective Vital Signs & Weight: Vital Signs (12 hours) Temp Pulse Resp BP Pulse Ox 02/16/19 10:50 98.6 F 02/16/19 07:13 90 16 02/16/19 07:05 100.7 F H 98 16 137/85 90 L Weight Admit Weight 209 lb 7.026 oz Weight 209 lb 7.026 oz I&O: 02/15/19 02/16/19 02/17/19 06:59 06:59 06:59 Intake Total 720 720 Output Total 600 1100 Balance 120 -380 Result Diagrams: 02/14/19 04:46 02/13/19 06:22 Hospitalist ROS - Review of Systems Constitutional: reports: fever, weakness. denies: chills, sweats, malaise, other Respiratory: reports: cough, SOB with excertion. denies: dry, shortness of breath, hemoptysis, pleuritic pain, sputum, wheezing, other Cardiovascular: denies: chest pain, palpitations, orthopnea, paroxysmal noc. dyspnea, edema, light headedness, other Gastrointestinal: denies: nausea, vomiting, abdominal pain, diarrhea, constipation, melena, hematochezia, other Genitourinary: denies: dysuria, frequency, incontinence, hematuria, retention, other Musculoskeletal: denies: neck pain, shoulder pain, arm pain, back pain, hand pain, leg pain, foot pain, other Skin: denies: rash, lesions, tish, bruising, other - Medication Medications: Active Medications Generic Name Dose Route Start Last Admin Trade Name Freq PRN Reason Stop Dose Admin Acetaminophen 1,000 mg 02/10/19 19:16 02/16/19 09:11 Tylenol PO 1,000 mg Q6H PRN Administration Mild Pain (1-3) Acetaminophen/Codeine Phosphate 1 tab 02/10/19 21:03 02/16/19 04:40 Tylenol #3 PO 1 tab Q4HR PRN Administration Moderate to Severe Pain (6-10) Albuterol/Ipratropium 3 ml 02/11/19 19:00 02/16/19 07:13 Duoneb NEB 3 ml [id number] HANNAH Administration Benzonatate 100 mg 02/10/19 19:16 02/14/19 08:25 Tessalon PO 100 mg Q6H PRN Administration Cough Betamethasone Valerate 0 gm 02/14/19 21:00 02/16/19 09:18 Valisone 0.1% Cream TOP 1 applic BID HANNAH Administration Buspirone HCl 30 mg 02/10/19 21:00 02/16/19 09:09 Buspar PO 30 mg BID HANNAH Administration Enoxaparin Sodium 40 mg 02/13/19 09:00 02/16/19 09:11 Lovenox SC 40 mg 0900 HANNAH Administration Famotidine 20 mg 02/10/19 21:00 02/16/19 09:10 Pepcid PO 20 mg BID HANNAH Administration Fluoxetine HCl 40 mg 02/11/19 09:00 02/16/19 09:13 Prozac PO 40 mg DAILY HANNAH Administration Fluticasone Propionate 0.5 gm 02/13/19 09:00 02/16/19 09:17 Flonase Nasal [place] NASAL 1 spr DAILY HANNAH Administration Gabapentin 900 mg 02/10/19 21:00 02/16/19 09:07 Neurontin PO 900 mg TID HANNAH Administration Guaifenesin/Dextromethorphan 10 ml 02/11/19 18:04 02/15/19 08:50 Robitussin Dm PO 10 ml Q6H PRN Administration Cough Hydroxyzine HCl 50 mg 02/10/19 21:00 02/16/19 09:09 Atarax PO 50 mg TID HANNAH Administration Levofloxacin 500 mg 02/15/19 06:00 02/16/19 04:40 Levaquin PO 500 mg 0600 HANNAH Administration Ondansetron HCl 4 mg 02/10/19 19:16 02/16/19 09:21 Zofran Odt PO 4 mg Q6H PRN Administration Nausea/Vomiting Ropinirole HCl 0.5 mg 02/10/19 21:00 02/15/19 20:12 Requip PO 0.5 mg HS [facility] Administration Saccharomyces Boulardii 250 mg 02/14/19 21:00 02/16/19 09:09 Florastor PO 250 mg BID HANNAH Administration Spironolactone 25 mg 02/15/19 09:00 02/16/19 09:11 Aldactone PO 25 mg DAILY HANNAH Administration Topiramate 50 mg 02/16/19 21:00 02/15/19 22:39 Topamax PO 50 mg HS HANNAH Administration - Exam General Appearance: NAD, awake alert Eye: PERRL, anicteric sclera ENT: normocephalic atraumatic, no oropharyngeal lesions Neck: supple, symmetric, no JVD, no thyromegaly, no lymphadenopathy Heart: RRR, no murmur, no gallops, no rubs Respiratory: rales, wheezes (left side lower lobe) Gastrointestinal: soft, non-tender, non-distended Extremities: no cyanosis, no clubbing, no edema Skin: normal turgor, no lesions Neurological: no focal deficits Musculoskeletal: normal tone, normal strength Psychiatric: normal affect, normal behavior Hosp A/P (1) Bacterial pneumonia Code(s): J15.9 - UNSPECIFIED BACTERIAL PNEUMONIA Status: Acute Plan: community acquired (2) Sepsis due to pneumonia Code(s): J18.9 - PNEUMONIA, UNSPECIFIED ORGANISM; A41.9 - SEPSIS, UNSPECIFIED ORGANISM Status: Acute (3) CKD (chronic kidney disease), stage III Code(s): N18.3 - CHRONIC KIDNEY DISEASE, STAGE 3 (MODERATE) Status: Chronic (4) Chronic pain Code(s): G89.29 - OTHER CHRONIC PAIN Status: Chronic Qualifiers: Chronic pain type: chronic pain syndrome Qualified Code(s): G89.4 - Chronic pain syndrome (5) Obesity (BMI 30-39.9) Code(s): E66.9 - OBESITY, UNSPECIFIED Status: Chronic (6) Anxiety and depression Code(s): F41.9 - ANXIETY DISORDER, UNSPECIFIED; F32.9 - MAJOR DEPRESSIVE DISORDER, SINGLE EPISODE, UNSPECIFIED Status: Chronic (7) GERD (gastroesophageal reflux disease) Code(s): K21.9 - GASTRO-ESOPHAGEAL REFLUX DISEASE WITHOUT ESOPHAGITIS Status: Chronic - Plan old records reviewed/req, continue antibiotics, PT/OT, respiratory therapy 02/16/19- given fever and her malaise, will monitor today, she has oxygen at her home, will continue levaquin, will repeat labs tomorrow
[2019-02-16] MEDS: Topiramate 25 MG TAB PO SCH (20:30)
[2019-02-16] MEDS: rOPINIRole HCl 0.5 MG TAB PO SCH (20:30)
[2019-02-17] MEDS: Guaifenesin DM 100-10/5 ML UDCUP PO PRN (00:55)
[2019-02-17 04:16] LABS: #Eosinphils 0.3 thou/uL (0.0-0.7); #Lymphocytes 1.3 thou/uL (1.20-3.40); #Monocytes 1.1 thou/uL (0.11-0.59); #Neutrophils 5.9 thou/uL (1.40-6.50); %Basophils 0.4 % (0.0-1.0); %Eosinophils 3.1 % (0.0-10.0); %Lymphocytes 14.6 % (21.0-51.0); %Monocytes 13.3 % (0.0-10.0); %Neutrophils 68.5 % (42.0-75.0); Hemoglobin 9.3 g/dL (12.0-16.0); Mean Corpuscular HGB CONC 31.3 g/dL (32.0-36.0); Mean Corpuscular Hemoglobin 27.1 pg (27.0-31.0); Mean Corpuscular Volume 86.5 fL (78.0-98.0); Mean Platelet Volume 6.3 fL (7.4-10.4); Platelet Count 324 thou/uL (130-400); RBC Distribution Width 15.8 % (11.5-14.5); Red Blood Cell (RBC) Count 3.45 mill/uL (4.20-5.40); White Blood Cell (WBC) Count 8.6 thou/uL (4.8-10.8)
[2019-02-17 04:36] LABS: ALT (SGPT) Less than 7 U/L (8-55); AST (SGOT) 10 U/L (5-34); Albumin 2.8 g/dL (3.4-4.8); Alkaline Phosphatase 26 U/L (40-150); Anion Gap 8 mmol/L (10-20); BUN (Urea Nitrogen) 10 mg/dL (9.8-20.1); Bilirubin, Total 0.3 mg/dL (0.2-1.2); Calc. Creatinine Clearance 78 mL/min (70-130); Calcium 8.8 mg/dL (7.8-10.44); Carbon Dioxide 28 mmol/L (23-31); Chloride 107 mmol/L (98-107); Estimated GFR-MDRD 59; Glucose 89 mg/dL (83-110); Protein, Total 5.8 g/dL (6.0-8.3); Sodium 139 mmol/L (136-145)
[2019-02-17 06:53] VITALS: TEMP 99.1
[2019-02-17] MEDS: Gabapentin 300 MG CAP PO SCH ×2 (08:13→14:45)
[2019-02-17] MEDS: FLUoxetine HCl 20 MG CAP PO SCH (08:14)
[2019-02-17] MEDS: busPIRone HCl 10 MG TAB PO SCH (08:14)
[2019-02-17] MEDS: Saccharomyces boulardii 250 MG CAP PO SCH (08:14)
[2019-02-17] MEDS: Spironolactone 25 MG TAB PO SCH (08:14)
[2019-02-17] MEDS: hydrOXYzine 25 MG TAB PO SCH ×2 (08:15→14:45)
[2019-02-17] MEDS: Famotidine 20 MG TAB PO SCH (08:15)
[2019-02-17] MEDS: Enoxaparin Sodium 40 MG/0.4 ML SYRINGE SC SCH (08:16)
[2019-02-17] MEDS: Betamethasone 0.1% Cream 15 GM TUBE TOP SCH (08:16)
[2019-02-17] MEDS: Fluticasone Propionate Nasal Spray 16 gm Bottle NASAL SCH (08:16)
--- NOTE | 2019-02-17 10:03 | PDOC.HOSPP ---
- Subjective Encounter Date: 02/17/19 Encounter Time: 08:40 Subjective: Patient seen and examined. No new complaints. No overnight events pt gets low sats after exertion, no fever - Objective Vital Signs & Weight: Vital Signs (12 hours) Temp Pulse Resp BP Pulse Ox 02/17/19 06:49 99.1 F 97 17 102/56 L 96 02/17/19 06:47 90 14 02/17/19 04:00 98.3 F 90 18 148/83 H 93 L 02/17/19 00:00 98.6 F 92 20 124/81 92 L Weight Admit Weight 209 lb 7.026 oz Weight 209 lb 7.026 oz I&O: 02/16/19 02/17/19 02/18/19 06:59 06:59 06:59 Intake Total 720 1240 Output Total 1100 Balance -380 1240 Result Diagrams: 02/17/19 03:55 02/17/19 03:55 Hospitalist ROS - Review of Systems Eyes: denies: pain, vision change, conjunctivae inflammation, eyelid inflammation, redness, other Respiratory: reports: shortness of breath, SOB with excertion. denies: cough, dry, hemoptysis, pleuritic pain, sputum, wheezing, other Cardiovascular: denies: chest pain, palpitations, orthopnea, paroxysmal noc. dyspnea, edema, light headedness, other Gastrointestinal: denies: nausea, vomiting, abdominal pain, diarrhea, constipation, melena, hematochezia, other Genitourinary: denies: dysuria, frequency, incontinence, hematuria, retention, other Musculoskeletal: denies: neck pain, shoulder pain, arm pain, back pain, hand pain, leg pain, foot pain, other Skin: denies: rash, lesions, tish, bruising, other - Medication Medications: Active Medications Generic Name Dose Route Start Last Admin Trade Name Freq PRN Reason Stop Dose Admin Acetaminophen 1,000 mg 02/10/19 19:16 02/16/19 09:11 Tylenol PO 1,000 mg Q6H PRN Administration Mild Pain (1-3) Acetaminophen/Codeine Phosphate 1 tab 02/10/19 21:03 02/16/19 04:40 Tylenol #3 PO 1 tab Q4HR PRN Administration Moderate to Severe Pain (6-10) Albuterol/Ipratropium 3 ml 02/11/19 19:00 02/17/19 06:47 Duoneb NEB 3 ml [id number] HANNAH Administration Benzonatate 100 mg 02/10/19 19:16 02/14/19 08:25 Tessalon PO 100 mg Q6H PRN Administration Cough Betamethasone Valerate 0 gm 02/14/19 21:00 02/17/19 08:16 Valisone 0.1% Cream TOP 1 applic BID HANNAH Administration Buspirone HCl 30 mg 02/10/19 21:00 02/17/19 08:14 Buspar PO 30 mg BID HANNAH Administration Enoxaparin Sodium 40 mg 02/13/19 09:00 02/17/19 08:16 Lovenox SC 40 mg 09 HANNAH Administration Famotidine 20 mg 02/10/19 21:00 02/17/19 08:15 Pepcid PO 20 mg BID HANNAH Administration Fluoxetine HCl 40 mg 02/11/19 09:00 02/17/19 08:14 Prozac PO 40 mg DAILY HANNAH Administration Fluticasone Propionate 0.5 gm 02/13/19 09:00 02/17/19 08:16 Flonase Nasal [place] NASAL 1 spr DAILY HANNAH Administration Gabapentin 900 mg 02/10/19 21:00 02/17/19 08:13 Neurontin PO 900 mg TID HANNAH Administration Guaifenesin/Dextromethorphan 10 ml 02/11/19 18:04 02/17/19 00:55 Robitussin Dm PO 10 ml Q6H PRN Administration Cough Hydroxyzine HCl 50 mg 02/10/19 21:00 02/17/19 08:15 Atarax PO 50 mg TID HANNAH Administration Levofloxacin 500 mg 02/15/19 06:00 02/17/19 05:32 Levaquin PO 500 mg 0600 HANNAH Administration Ondansetron HCl 4 mg 02/10/19 19:16 02/16/19 09:21 Zofran Odt PO 4 mg Q6H PRN Administration Nausea/Vomiting Ropinirole HCl 0.5 mg 02/10/19 21:00 02/16/19 20:30 Requip PO 0.5 mg HS HANNAH Administration Saccharomyces Boulardii 250 mg 02/14/19 21:00 02/17/19 08:14 Florastor PO 250 mg BID HANNAH Administration Spironolactone 25 mg 02/15/19 09:00 02/17/19 08:14 Aldactone PO 25 mg DAILY HANNAH Administration Topiramate 50 mg 02/16/19 21:00 02/16/19 20:30 Topamax PO 50 mg HS HANNAH Administration - Exam General Appearance: NAD, awake alert Eye: PERRL, anicteric sclera ENT: normocephalic atraumatic, no oropharyngeal lesions Neck: supple, symmetric, no JVD, no thyromegaly Heart: RRR, no gallops, no rubs Respiratory: CTAB Respiratory - other findings: few left base rales Gastrointestinal: soft, non-tender, non-distended, normal bowel sounds Extremities: no cyanosis, no clubbing, no edema Skin: normal turgor, no lesions, no rashes Neurological: no focal deficits Musculoskeletal: normal tone, normal strength Psychiatric: normal affect, normal behavior, A&O x 3 Hosp A/P (1) Bacterial pneumonia Code(s): J15.9 - UNSPECIFIED BACTERIAL PNEUMONIA Status: Acute (2) Sepsis due to pneumonia Code(s): J18.9 - PNEUMONIA, UNSPECIFIED ORGANISM; A41.9 - SEPSIS, UNSPECIFIED ORGANISM Status: Acute (3) CKD (chronic kidney disease), stage III Code(s): N18.3 - CHRONIC KIDNEY DISEASE, STAGE 3 (MODERATE) Status: Chronic (4) Chronic pain Code(s): G89.29 - OTHER CHRONIC PAIN Status: Chronic Qualifiers: Chronic pain type: chronic pain syndrome Qualified Code(s): G89.4 - Chronic pain syndrome (5) Obesity (BMI 30-39.9) Code(s): E66.9 - OBESITY, UNSPECIFIED Status: Chronic (6) Anxiety and depression Code(s): F41.9 - ANXIETY DISORDER, UNSPECIFIED; F32.9 - MAJOR DEPRESSIVE DISORDER, SINGLE EPISODE, UNSPECIFIED Status: Chronic (7) GERD (gastroesophageal reflux disease) Code(s): K21.9 - GASTRO-ESOPHAGEAL REFLUX DISEASE WITHOUT ESOPHAGITIS Status: Chronic (8) Chronic respiratory failure with hypoxia, on home O2 therapy Code(s): J96.11 - CHRONIC RESPIRATORY FAILURE WITH HYPOXIA; Z99.81 - DEPENDENCE ON SUPPLEMENTAL OXYGEN Status: Chronic - Plan old records reviewed/req, continue antibiotics, PT/OT, social worker masters, respiratory therapy 02/16/19- given fever and her malaise, will monitor today, she has oxygen at her home, will continue levaquin, will repeat labs tomorrow 02/17- pt has home oxygen, she will need to use daily basis, continue levaquin, I have advised about option of SNU on discharge given she lives alone, no significant help and still weak physically, pt will decide about that today. has home health. medically stable, concern for readmission , medication reviewed as above, symptomatic treatment
[2019-02-17] MEDS: Acetaminophen/Codeine 30-300mg Tablet PO PRN ×2 (11:21→16:33)
--- NOTE | 2019-02-17 13:30 | DIS ---
DATE OF ADMISSION: 02/10/2019 DATE OF DISCHARGE: 02/17/2019 PRIMARY CARE PHYSICIAN: Dr. Cristobal. DISCHARGE DISPOSITION: Rehab. PRIMARY DISCHARGE DIAGNOSES: 1. Acute respiratory failure with hypoxia. 2. Left lower lobe community-acquired pneumonia. 3. Sepsis due to pneumonia. SECONDARY DISCHARGE DIAGNOSES: 1. Gastroesophageal reflux disease. 2. Glaucoma. 3. Anxiety and depression. 4. Chronic pain disorder. 5. Chronic kidney disease stage 3. 6. Gastroesophageal reflux disease. 7. Obesity with BMI 38. PRIMARY PROCEDURE/OPERATION: None. RADIOLOGICAL INVESTIGATION: Chest x-ray showed left lower lobe pneumonia. SIGNIFICANT LABORATORY DATA: WBC 8.6, hemoglobin 9.3, and platelets 324. Sodium 139, creatinine 0.93, albumin 2.8. Urinalysis unremarkable. Blood culture negative. Urine culture negative. Influenza negative. DISCHARGE MEDICATIONS: 1. Tylenol No.3 one tablet q.4 hourly p.r.n. 2. Zofran 8 mg q.6 hourly p.r.n. 3. BuSpar 30 mg b.i.d. 4. Topicort topical application b.i.d. 5. Dexilant 60 mg at bedtime. 6. Doxepin 50 mg daily. 7. Prozac 40 mg daily. 8. Lasix 40 mg p.o. as directed. 9. Gabapentin 900 mg t.i.d. 10. Atarax 50 mg t.i.d. p.r.n. 11. Ropinirole 0.5 mg at bedtime. 12. Aldactone 25 mg daily. 13. Topamax 50 mg at bedtime. 14. Tramadol 50 mg q.6 hourly p.r.n. 15. Tessalon 100 mg q.6 hourly p.r.n. 16. Levaquin 500 mg p.o. daily for 5 more days. 17. Florastor 250 mg b.i.d. for 5 days. CONTRAINDICATION: None. CODE STATUS: Full code. INPATIENT PHYSICAL THERAPIST: None. ALLERGIES: BACITRACIN, LATEX, NATURAL RUBBER, NEOMYCIN, AND PENICILLIN. DISCHARGE PLAN: Posthospital, the patient will follow up with primary care physician. Primary care physician will repeat chest x-ray in 2 to 3 weeks to see resolution of pneumonia. HOSPITAL COURSE: A 73-year-old female with above-mentioned medical problem, who was admitted by Dr. Moscoso. Please see his H and P for further details. The patient was presented to emergency room with increasing shortness of breath and cough. She was diagnosed with left lower lobe pneumonia. She was requiring oxygen. She was meeting sepsis criteria. She was admitted to medical floor and she was treated with Rocephin and azithromycin. While in hospital upon discharge, we changed to levofloxacin. The patient has chronic respiratory failure and she requires oxygen therapy upon discharge. She has physical deconditioning and that is why she was not safe for discharge to go home. We consulted Rehab and Rehab evaluated this patient and the patient is approved for rehabilitation. Paperwork for discharge done. Discharge medication reconciliation done. Overall, the patient is medically stable for discharge to rehab. Job ID: [id number]
[2019-02-17] MEDS ORDERED: Calcium Carbonate 500 MG ChewTAB PO PRN (14:59)
[2019-02-17 16:04] VITALS: BP 123/87
== END 2019-02-17 16:36 | DRG 871 ==
LOC: ERS 15:09 → T4-A 16:59
PROVIDERS: ADMIT Family Medicine; ATTEND Family Medicine
DX: A41.9 Sepsis, unspecified organism (principal); J96.21 Acute and chronic respiratory failure with hypoxia; J18.1 Lobar pneumonia, unspecified organism; M79.7 Fibromyalgia; G25.81 Restless legs syndrome; F41.9 Anxiety disorder, unspecified; F32.9 Major depressive disorder, single episode, unspecified; F42.9 Obsessive-compulsive disorder, unspecified; G89.4 Chronic pain syndrome; G62.9 Polyneuropathy, unspecified; M81.8 Other osteoporosis without current pathological fracture; N18.3 Chronic kidney disease, stage 3 (moderate); K21.9 Gastro-esophageal reflux disease without esophagitis; Z96.641 Presence of right artificial hip joint; E66.9 Obesity, unspecified; Z68.38 Body mass index [BMI] 38.0-38.9, adult; Z87.891 Personal history of nicotine dependence; Z88.1 Allergy status to other antibiotic agents; Z90.49 Acquired absence of other specified parts of digestive tract; Z90.710 Acquired absence of both cervix and uterus; Z99.81 Dependence on supplemental oxygen; Z91.040 Latex allergy status; Z88.2 Allergy status to sulfonamides; Z88.0 Allergy status to penicillin; Z88.8 Allergy status to other drugs, medicaments and biological substances; Z79.899 Other long term (current) drug therapy; Z79.82 Long term (current) use of aspirin
CPT/HCPCS: 36415; 51701; 71045; 80048; 80053; 81003; 83605; 85007; 85025; 85027; 87040; 87086; 87804; 94640; 94760; 96361; 96365; A4353; J0456; J0696; J1650; J1956; J3490; J7050; J7620; Q0162

== ENCOUNTER 2019-06-13 08:32 | Inpatient (IN) | payer MEDICARE ==
--- NOTE | 2019-06-13 08:59 | RAD ---
CHEST 1 VIEW: Date: 06/13/2019 HISTORY: Chest pain, weakness, fever, and tachycardia. COMPARISON: Radiograph dated 02/10/19. FINDINGS: There is lingular and left lower lobe air space opacity. Small left effusion. Right lung is clear. There is cement within multiple mid thoracic spine compression fractures. IMPRESSION: Findings concerning for lingular and left lower lobe pneumonia with parapneumonic effusion. POS: TPC
[2019-06-13 09:07] LABS: #Lymphocytes 0.7 thou/uL (1.20-3.40); #Monocytes 0.3 thou/uL (0.11-0.59); #Neutrophils 6.3 thou/uL (1.40-6.50); %Basophils 0.3 % (0.0-1.0); %Eosinophils 0.3 % (0.0-10.0); %Lymphocytes 10.1 % (21.0-51.0); %Monocytes 4.3 % (0.0-10.0); Hemoglobin 12.4 g/dL (12.0-16.0); Mean Corpuscular Hemoglobin 29.7 pg (27.0-31.0); Mean Corpuscular Volume 92.6 fL (78.0-98.0); Mean Platelet Volume 6.3 fL (7.4-10.4); Platelet Count 264 thou/uL (130-400); RBC Distribution Width 13.3 % (11.5-14.5); Red Blood Cell (RBC) Count 4.17 mill/uL (4.20-5.40); White Blood Cell (WBC) Count 7.4 thou/uL (4.8-10.8)
[2019-06-13 09:15] LABS: ALT (SGPT) Less than 7 U/L (8-55); AST (SGOT) 15 U/L (5-34); Albumin 3.4 g/dL (3.4-4.8); Alkaline Phosphatase 39 U/L (40-110); Anion Gap 14 mmol/L (10-20); BUN (Urea Nitrogen) 33 mg/dL (9.8-20.1); Bilirubin, Total 0.5 mg/dL (0.2-1.2); Calc. Creatinine Clearance 0 mL/min (70-130); Calcium 9.2 mg/dL (7.8-10.44); Carbon Dioxide 25 mmol/L (23-31); Chloride 107 mmol/L (98-107); Estimated GFR-MDRD 26; Globulin 3.5 g/dL (2.4-3.5); Glucose 107 mg/dL (83-110); Potassium 3.7 mmol/L (3.5-5.1); Protein, Total 6.9 g/dL (6.0-8.3); Sodium 142 mmol/L (136-145)
[2019-06-13] MEDS ORDERED: cefTRIAXone\\ROCEPHIN 1 GM VIAL ONE (10:06)
[2019-06-13] MEDS ORDERED: Azithromycin 500 MG VIAL ONE (10:18)
[2019-06-13 10:24] LABS: Bilirubin Negative (Negative); Blood, Urine Negative (Negative); Clarity Clear (Clear); Glucose, Urine (Dipstick) Normal (Negative); Leukocyte Negative Leu/uL (Negative); Nitrite Negative (Negative); Protein, Urine (Dipstick) Negative (Neg-Trace); Urobilinogen Normal mg/dL (Less than 2)
[2019-06-13] MEDS ORDERED: Zolpidem Tartrate 5 MG TAB PO PRN (10:45)
--- NOTE | 2019-06-13 12:14 | HP ---
PRIMARY CARE PHYSICIAN: Deidra Cristobal MD Referred to the [facility]ist [facility] for pneumonia from the [facility]. The patient's complaint, she started cough yesterday, it is bad today. She had been progressively short of breath over the past 24 hours. She had a fever of 102 days. She had chills and sweats during the night. PAST MEDICAL HISTORY: Pertinent for severe anxiety disorder with depression, chronic pain syndrome, chronic kidney disease stage 3, restless legs syndrome, peripheral neuropathy, fibromyalgia, and chronic fatigue syndrome. CURRENT MEDICATIONS: 1. Gabapentin 900 mg every 8 hours. 2. Lasix 40 mg a day. 3. Spironolactone 25 mg a day. 4. BuSpar 30 mg twice a day. 5. Fluoxetine 40 mg a day. 6. Aspirin 81 mg a day. 7. Dexilant 60 mg a day. 8. Ropinirole 0.5 mg a day. 9. Tizanidine 2 mg p.r.n. ALLERGIES: TOPICAL NEOSPORIN, PENICILLIN, AND SULFA. PAST SURGICAL HISTORY: Status post cholecystectomy, hysterectomy, right hip arthroplasty, tonsillectomy, appendectomy, and kyphoplasty. FAMILY HISTORY: Negative for inheritable diseases such as diabetes, hypertension, heart disease. SOCIAL HISTORY: Resides independently at [place]. Quit tobacco use greater than 10 years ago. No alcohol or illicit drug use. CODE STATUS: Full. NEXT OF KIN: Aminah Ceballos, daughter, who does not live locally. REVIEW OF SYSTEMS: GENERAL: She states she has no headaches, dizziness or fainting. EYES: No double vision, blurred vision, or flashing light. EAR, NOSE AND THROAT: No ear pain or drainage. No nasal bleeding. No trouble swallowing. CARDIAC: No chest pain, orthopnea or paroxysmal nocturnal dyspnea. RESPIRATIONS: See present illness. GASTROINTESTINAL: She had some nausea with the present illness this morning. No emesis. No abdominal pain. No diarrhea or constipation. GENITOURINARY: No hematuria or dysuria. MUSCULOSKELETAL: She has chronic pain syndrome throughout her body. No focal point. NEUROLOGICAL: No strokes, seizures or focal weakness. PSYCHIATRIC: She has marked trouble with anxiety and depression. She states she has a lot of stress in her life currently, she did not elucidate. SKIN: No bruising, bleeding or rash. HEME/LYMPH: No tender or swollen lymph nodes in axilla, inguinal or cervical area. PHYSICAL EXAMINATION: GENERAL: The patient is alert, pleasant, cooperative lady, appearing ill. VITAL SIGNS: Most recent vital signs; blood pressure 133/78, pulse 89, respirations 22, and O2 sat recently was 86 on room air, it is now 96 on 3 L of O2. Temperature in the ER was 102.6. At that time, her pulse was 106. HEAD, EYES, EARS, NOSE AND THROAT: Pupils equal, round, and reactive to light. Extraocular movements intact. Sclerae white. Tympanic membranes clear. Nose clear. Oral mucous membranes are dry. NECK: Supple without jugular venous distention, adenopathy or thyromegaly. CHEST: Clear to percussion. Clear anteriorly to auscultation. She has marked rales over the lower and lateral one-third of the left chest. HEART: Regular rate and rhythm without murmurs or gallops. ABDOMEN: Soft. Bowel sounds are normal. There is no hepatosplenomegaly. No mass. No rebound. No bruits. EXTREMITIES: No cyanosis, clubbing or edema. PULSES: Carotid, radial, femoral, and dorsalis pedis pulses intact. SKIN: Warm and dry without bruises or rash. HEME/LYMPH: No tender or swollen lymph nodes in the axilla, inguinal, cervical area. NEUROLOGICAL: Cranial nerves 2 through 12 intact, moves all extremities. Deep tendon reflexes intact. DIAGNOSTIC DATA: EKG; I am told there is one available, we will find it and review when available. Chest x-ray reveals infiltrate in the left lateral chest, lower lobe (consistent with the physical exam for pneumonia). LABORATORY DATA: White cell count is normal with absolute neutrophil of 85%, white count 7.4, hemoglobin 12.4, and platelets 264,000. Comprehensive metabolic profile has a creatinine of 1.91 consistent with her chronic kidney disease. It is also possible that this is adverse based on dehydration and sickness. BUN 33. Lytes balanced. Liver function tests normal. ADMITTING DIAGNOSES: 1. Left lower lobe pneumonia. 2. Acute hypoxic respiratory failure. 3. Chronic kidney disease, stage 3. 4. Anxiety and depression disorder. PLAN: Cultures have been drawn. Rocephin and Zithromax will be given IV. O2 will be supplied for her acute respiratory failure. Her anxiety medicines will be updated and continued. Job ID: [id number]
[2019-06-13] MEDS: Sodium Chloride 0.9% 1,000 ML IV SCH ×2 (12:40→21:45)
[2019-06-13 13:01] VITALS: BMI 26.4
[2019-06-13] MEDS: rOPINIRole HCl 0.5 MG TAB PO SCH (20:13)
[2019-06-13] MEDS: Acetaminophen 325 MG TAB PO PRN (20:13)
[2019-06-13] MEDS: busPIRone HCl 10 MG TAB PO SCH (20:13)
[2019-06-13] MEDS: Diabetic Tussin 200 MG/10 ML UDCUP PO PRN (21:45)
[2019-06-14] MEDS: Acetaminophen 325 MG TAB PO PRN ×2 (00:30→04:48)
[2019-06-14 06:05] LABS: Anion Gap 8 mmol/L (10-20); BUN (Urea Nitrogen) 25 mg/dL (9.8-20.1); Calc. Creatinine Clearance 41 mL/min (70-130); Calcium 8.1 mg/dL (7.8-10.44); Carbon Dioxide 25 mmol/L (23-31); Chloride 111 mmol/L (98-107); Estimated GFR-MDRD 40; Glucose 81 mg/dL (83-110); Potassium 3.9 mmol/L (3.5-5.1); Sodium 140 mmol/L (136-145)
[2019-06-14 06:18] LABS: Band 31 % (5-11); Hemoglobin 10.4 g/dL (12.0-16.0); Lymphocytes 4 % (21-51); MDiff Complete? YES; Mean Corpuscular HGB CONC 31.4 g/dL (32.0-36.0); Mean Corpuscular Volume 92.2 fL (78.0-98.0); Mean Platelet Volume 6.6 fL (7.4-10.4); Monocytes 6 % (0-10); Neutrophil 59 % (42-75); Platelet Count 220 thou/uL (130-400); RBC Distribution Width 13.1 % (11.5-14.5); Red Blood Cell (RBC) Count 3.59 mill/uL (4.20-5.40); White Blood Cell (WBC) Count 18.1 thou/uL (4.8-10.8)
[2019-06-14] MEDS: Diabetic Tussin 200 MG/10 ML UDCUP PO PRN (06:44)
[2019-06-14] MEDS: Sodium Chloride 0.9% 1,000 ML IV SCH ×3 (06:45→21:01)
[2019-06-14] MEDS: busPIRone HCl 10 MG TAB PO SCH ×2 (08:22→20:55)
[2019-06-14] MEDS: FLUoxetine HCl 20 MG CAP PO SCH (08:22)
[2019-06-14] MEDS: Enoxaparin Sodium 30 MG/0.3 ML SYRINGE SC SCH (08:22)
[2019-06-14] MEDS ORDERED: traMADol HCl 50 MG TAB PO PRN (09:52)
[2019-06-14] MEDS ORDERED: Azithromycin 500 MG in Sodium Chloride 0.9% 250 ML 250 ML IVPB SCH (11:00)
[2019-06-14] MEDS: cefTRIAXone\\ROCEPHIN 1 GM in Sodium Chloride 0.9% 100 ML IVPB SCH (11:01)
--- NOTE | 2019-06-14 11:37 | PDOC.HOSPP ---
- Subjective Encounter Date: 06/14/19 Encounter Time: 09:00 Subjective: she is not feeling good, has cough with expectoration no sob, oriented well says she had pna on the same side recently and went to rehab due to deconditioning - Objective Vital Signs & Weight: Vital Signs (12 hours) Temp Pulse Resp BP Pulse Ox 06/14/19 08:00 98.7 F 83 18 108/75 94 L 06/14/19 05:08 100.2 F H 84 20 96/57 L 94 L 06/14/19 00:33 99.0 F 91 18 105/64 94 L Weight Admit Weight 153 lb 14.72 oz Weight 153 lb 14.72 oz I&O: 06/13/19 06/14/19 06/15/19 06:59 06:59 06:59 Output Total 650 Balance -650 Result Diagrams: 06/14/19 05:12 06/14/19 05:12 Hospitalist ROS - Medication Medications: Active Medications Generic Name Dose Route Start Last Admin Trade Name Freq PRN Reason Stop Dose Admin Acetaminophen 650 mg 06/13/19 10:45 06/14/19 04:48 Tylenol PO 650 mg Q4H PRN Administration Headache/Fever/Mild Pain (1-3) Buspirone HCl 30 mg 06/13/19 21:00 06/14/19 08:22 Buspar PO 30 mg BID HANNAH Administration Enoxaparin Sodium 30 mg 06/14/19 09:00 06/14/19 08:22 Lovenox SC 30 mg 0900 HANNAH Administration Fluoxetine HCl 40 mg 06/14/19 09:00 06/14/19 08:22 Prozac PO 40 mg DAILY HANNAH Administration Guaifenesin 200 mg 06/13/19 21:21 06/14/19 06:44 Robitussin Sf PO 200 mg Q4H PRN Administration Cough Ceftriaxone Sodium 1 gm/ 100 mls @ 200 mls/hr 06/14/19 10:00 06/14/19 11:01 Sodium Chloride IVPB 100 mls 1000 HANNAH Administration Sodium Chloride 1,000 mls @ 100 mls/hr 06/13/19 10:45 06/14/19 06:45 Normal Saline 0.9% IV 1,000 mls .Q10H HANNAH Administration Ropinirole HCl 0.5 mg 06/13/19 21:00 06/13/19 20:13 Requip PO 0.5 mg HS HANNAH Administration Tramadol HCl 50 mg 06/14/19 09:52 06/14/19 11:02 Ultram PO 50 mg Q6H PRN Administration Mild Pain (1-3) - Exam General Appearance: awake alert Eye: PERRL, anicteric sclera ENT: no oropharyngeal lesions, moist mucosa Neck: supple, no JVD Heart: RRR, no murmur Respiratory: no wheezes, no rales, rhonchi Gastrointestinal: soft, non-tender, non-distended, normal bowel sounds Extremities: no cyanosis, no edema Neurological: cranial nerve grossly intact, no focal deficits Psychiatric: normal affect, A&O x 3 Hosp A/P (1) Sepsis due to pneumonia Code(s): J18.9 - PNEUMONIA, UNSPECIFIED ORGANISM; A41.9 - SEPSIS, UNSPECIFIED ORGANISM Status: Acute (2) Anxiety and depression Code(s): F41.9 - ANXIETY DISORDER, UNSPECIFIED; F32.9 - MAJOR DEPRESSIVE DISORDER, SINGLE EPISODE, UNSPECIFIED Status: Chronic (3) CKD (chronic kidney disease), stage III Code(s): N18.3 - CHRONIC KIDNEY DISEASE, STAGE 3 (MODERATE) Status: Chronic (4) Chronic pain Code(s): G89.29 - OTHER CHRONIC PAIN Status: Chronic Qualifiers: Chronic pain type: chronic pain syndrome Qualified Code(s): G89.4 - Chronic pain syndrome (5) Chronic respiratory failure with hypoxia, on home O2 therapy Code(s): J96.11 - CHRONIC RESPIRATORY FAILURE WITH HYPOXIA; Z99.81 - DEPENDENCE ON SUPPLEMENTAL OXYGEN Status: Chronic (6) GERD (gastroesophageal reflux disease) Code(s): K21.9 - GASTRO-ESOPHAGEAL REFLUX DISEASE WITHOUT ESOPHAGITIS Status: Chronic (7) ANNA (acute kidney injury) Code(s): N17.9 - ACUTE KIDNEY FAILURE, UNSPECIFIED Status: Resolved (8) Chronic anemia Code(s): D64.9 - ANEMIA, UNSPECIFIED Status: Chronic - Plan is on zithromax and ceftriaxone CT chest images noted, no significant effusion seen on left side pulm consultation PT to mobilize as tolerated urinalysis if not done yet conitnue nebs, asp, neurontin high dose, buspar bid, fluoxetine, ropinirole, tizanidine watch for resp depression with above meds, she wants all her meds to be continued. anna is better with creatinine of 1.3 from 1.9 wbc up from 7 to 18k with 31% bands this am hemostable
--- NOTE | 2019-06-14 11:54 | CT ---
CT CHEST WITHOUT CONTRAST CLINICAL INDICATION: Left-sided pneumonia. Question of loculated pleural effusion. Abnormal chest x-ray. COMPARISON: None FINDINGS: Aorta: Lack of intravenous contrast limits evaluation of the vascular structures. Vascular calcificat ions are seen in the coronary arteries as well as involving the thoracic aorta. Lungs: There are scattered linear and patchy as well as nodular parenchymal densities seen throughout the left upper lobe and to a greater extent in the left lower lobe worrisome for infectious process. Small bilateral pleural effusions are seen. Minimal emphysematous changes are seen in the up per lobes. Subcentimeter pleural-based nodular density is seen along the minor fissure likely due to small intrapleural lymph node. Mediastinum: There is a moderate-sized hiatal hernia with the fundus and proximal body the stomach ab ove the level of the hemidiaphragms. Mildly prominent pretracheal lymph node is seen measuring 11 mm in short axis dimension which may be reactive in origin. Thyroid gland: Grossly within normal limits where visualized. Osseous structures: As noted on CT scan of the thorax on 08/13/2018, there are vertebroplasty changes involving compression fractures of the T8-T11 vertebral bodies. Multilevel degenerative changes are seen in the thoracic spine and involving visualized upper lumbar spine. There is a mild compression f racture involving the superior endplate of the L2 vertebral body which is stable compared to prior CT lumbar spine on 08/01/2018. Chest wall: No abnormality visualized. Upper abdomen: Postcholecystectomy changes are identified. Remainder of the limited visualized upper abdomen demonstrates a grossly normal nonenhanced CT appearance. IMPRESSION: 1. Nodular and patchy parenchymal densities as well as interstitial densities seen within the left up per lobe and to a greater extent in the left lower lobe worrisome for infectious process. Follow-up to resolution is recommended. 2. Small bilateral pleural effusions larger in size on the left. 3. Hiatal hernia.
[2019-06-14] MEDS: Ondansetron ODT 4 MG TAB PO PRN (14:37)
[2019-06-14] MEDS: Gabapentin 300 MG CAP PO SCH ×2 (14:37→20:56)
[2019-06-14] MEDS: Acetaminophen/Codeine 30-300mg Tablet PO PRN ×2 (15:22→21:00)
[2019-06-14] MEDS ORDERED: Ondansetron PF 4 MG/2 ML Vial IVP PRN (16:11)
[2019-06-14] MEDS: rOPINIRole HCl 0.5 MG TAB PO SCH (20:55)
[2019-06-14] MEDS: Topiramate 25 MG TAB PO SCH (20:55)
[2019-06-14] MEDS: Saccharomyces boulardii 250 MG CAP PO SCH (20:55)
[2019-06-14] MEDS: Betamethasone 0.1% Cream 15 GM TUBE TOP SCH (20:56)
[2019-06-14] MEDS: Benzonatate 100 MG CAP PO PRN (21:00)
--- NOTE | 2019-06-15 01:15 | CON ---
DATE OF CONSULTATION: 06/14/2019 HISTORY OF PRESENT ILLNESS: Zunilda Quach is a 74-year-old female. I was consulted for pneumonia. She had a chest x-ray and a CT of her chest, which showed patchy left lung infiltrates. She had a small effusion on the left. She says she has been nauseated all morning after receiving azithromycin. She said she would not take this antibiotic anymore. She was not nauseated on presentation. PAST MEDICAL HISTORY: Remarkable for; 1. Anxiety. 2. Chronic pain. 3. Depression. 4. History of chronic kidney disease. 5. History of restless legs. 6. History of peripheral neuropathy. 7. History of fibromyalgia. 8. History of chronic fatigue. MEDICATIONS: She is on gabapentin, Lasix, Aldactone, BuSpar, fluoxetine, aspirin, Dexilant, ropinirole, and tizanidine prior to admission. ALLERGIES: SHE REPORTS NEOSPORIN, PENICILLIN, AND SULFA ALLERGIES. PAST SURGICAL HISTORY: Remarkable for cholecystectomy, hysterectomy, hip replacement, tonsillectomy, appendectomy, and kyphoplasty. FAMILY HISTORY: Negative for lung disease in early age. SOCIAL HISTORY: She lives at [place]. She is a former smoker. She does not drink. She has never been told she has COPD. REVIEW OF SYSTEMS: Ten point review of systems completed, otherwise negative. Reports hurting all over. Reports leg cramps and is angry that she is nauseated. I really could not get much of a history out of her other than that she was nauseated and she is not going to take any more antibiotics that she had received. PHYSICAL EXAMINATION: GENERAL: She is in no distress. VITAL SIGNS: Afebrile. Heart rate is in 80s, respiratory rate is 18, oximetry is 94% on 3 L, blood pressure 108/75. HEENT: Pupils are equal. Sclerae are anicteric. NECK: Supple. No lymphadenopathy. LUNGS: Remarkable for very faint crackles at both lung bases. HEART: Regular rhythm. No S3. ABDOMEN: Soft and nontender. EXTREMITIES: Without clubbing, cyanosis, or edema. NEUROLOGIC: Grossly nonfocal. LABORATORY DATA: White count 18.1, hemoglobin 10.4, platelets 220. Sodium 140, potassium 3.9, chloride 111, bicarb 25, BUN 25, creatinine 1.3. Creatinine was 1.9 yesterday. Urinalysis unremarkable. IMPRESSION: 1. Pneumonia. 2. Nausea? related to azithromycin. I suppose it is possible, but I have never seen IV azithromycin cause nausea. I would think we could just hold this for now. Continue with Rocephin and treat her nausea. I will be happy to follow the other physicians caring for. TIME SPENT: This is a 50-minute consult, with greater than 50% of the time was spent on the unit coordinating care. Job ID: [id number] MTDD
[2019-06-15] MEDS: Acetaminophen/Codeine 30-300mg Tablet PO PRN ×3 (02:21→20:56)
[2019-06-15] MEDS: Benzonatate 100 MG CAP PO PRN ×2 (02:26→08:20)
[2019-06-15] MEDS: Sodium Chloride 0.9% 1,000 ML IV SCH ×2 (05:12→06:31)
[2019-06-15] MEDS: Ondansetron ODT 4 MG TAB PO PRN (06:28)
[2019-06-15] MEDS: Saccharomyces boulardii 250 MG CAP PO SCH ×2 (08:05→21:50)
[2019-06-15] MEDS: busPIRone HCl 10 MG TAB PO SCH ×2 (08:05→21:50)
[2019-06-15] MEDS: FLUoxetine HCl 20 MG CAP PO SCH (08:06)
[2019-06-15] MEDS: Gabapentin 300 MG CAP PO SCH ×3 (08:06→21:49)
[2019-06-15] MEDS: Enoxaparin Sodium 30 MG/0.3 ML SYRINGE SC SCH (08:07)
[2019-06-15] MEDS: Betamethasone 0.1% Cream 15 GM TUBE TOP SCH ×2 (08:08→22:00)
[2019-06-15] MEDS: cefTRIAXone\\ROCEPHIN 1 GM in Sodium Chloride 0.9% 100 ML IVPB SCH (08:16)
[2019-06-15] MEDS ORDERED: Furosemide 40 MG/4 ML VIAL SLOW IVP SCH (08:45)
[2019-06-15] MEDS: Doxepin HCl 25 MG CAP PO SCH (09:07)
[2019-06-15] MEDS ORDERED: Mag-Al Plus 1200 MG/1200 MG/120 MG/30 ML UDCUP PO PRN (10:43)
--- NOTE | 2019-06-15 11:16 | PDOC.HOSPP ---
- Subjective Encounter Date: 06/15/19 Encounter Time: 08:45 Subjective: c/o worsening cough loss of appetite to eat, still nauseous - Objective Vital Signs & Weight: Vital Signs (12 hours) Temp Pulse Resp BP Pulse Ox 06/15/19 08:00 98.9 F 86 24 H 110/80 94 L Weight Admit Weight 153 lb 14.72 oz Weight 153 lb 14.72 oz I&O: 06/14/19 06/15/19 06/16/19 06:59 06:59 06:59 Output Total 650 Balance -650 Result Diagrams: 06/14/19 05:12 06/14/19 05:12 Hospitalist ROS - Medication Medications: Active Medications Generic Name Dose Route Start Last Admin Trade Name Freq PRN Reason Stop Dose Admin Acetaminophen 650 mg 06/13/19 10:45 06/14/19 04:48 Tylenol PO 650 mg Q4H PRN Administration Headache/Fever/Mild Pain (1-3) Acetaminophen/Codeine Phosphate 1 tab 06/14/19 09:52 06/15/19 06:28 Tylenol #3 PO 1 tab Q4H PRN Administration Moderate Pain (4-6) Benzonatate 100 mg 06/14/19 09:52 06/15/19 08:20 Tessalon PO 100 mg Q6H PRN Administration Cough Betamethasone Valerate 0 gm 06/14/19 21:00 06/15/19 08:08 Valisone 0.1% Cream TOP 1 applic BID HANNAH Administration Buspirone HCl 30 mg 06/13/19 21:00 06/15/19 08:05 Buspar PO 30 mg BID HANNAH Administration Doxepin HCl 50 mg 06/15/19 09:00 06/15/19 09:07 Sinequan PO Not Given DAILY HANNAH Enoxaparin Sodium 30 mg 06/14/19 09:00 06/15/19 08:07 Lovenox SC 30 mg 0900 HANNAH Administration Fluoxetine HCl 40 mg 06/14/19 09:00 06/15/19 08:06 Prozac PO 40 mg DAILY HANNAH Administration Gabapentin 900 mg 06/14/19 15:00 06/15/19 08:06 Neurontin PO 900 mg TID HANNAH Administration Guaifenesin 200 mg 06/13/19 21:21 06/14/19 06:44 Robitussin Sf PO 200 mg Q4H PRN Administration Cough Ceftriaxone Sodium 1 gm/ 100 mls @ 200 mls/hr 06/14/19 10:00 06/15/19 08:16 Sodium Chloride IVPB 100 mls 1000 HANNAH Administration Ondansetron HCl 4 mg 06/13/19 10:45 06/15/19 06:28 Zofran Odt PO 4 mg Q6H PRN Administration Nausea/Vomiting Ondansetron HCl 8 mg 06/14/19 16:11 06/15/19 02:22 Zofran IVP 8 mg Q6H PRN Administration Nausea/Vomiting Ropinirole HCl 0.5 mg 06/13/19 21:00 06/14/19 20:55 Requip PO 0.5 mg HS HANNAH Administration Saccharomyces Boulardii 250 mg 06/14/19 21:00 06/15/19 08:05 Florastor PO 250 mg BID HANNAH Administration Topiramate 50 mg 06/14/19 21:00 06/14/19 20:55 Topamax PO 50 mg HS HANNAH Administration Tramadol HCl 50 mg 06/14/19 09:52 06/14/19 11:02 Ultram PO 50 mg Q6H PRN Administration Mild Pain (1-3) - Exam General Appearance: awake alert Eye: PERRL, anicteric sclera ENT: no oropharyngeal lesions, moist mucosa Neck: supple, no JVD Heart: RRR, no murmur Respiratory: no wheezes, no rales, rhonchi Gastrointestinal: soft, non-tender, non-distended, normal bowel sounds Extremities: no cyanosis, no edema Neurological: cranial nerve grossly intact, no focal deficits Psychiatric: normal affect, A&O x 3 Hosp A/P (1) Sepsis due to pneumonia Code(s): J18.9 - PNEUMONIA, UNSPECIFIED ORGANISM; A41.9 - SEPSIS, UNSPECIFIED ORGANISM Status: Acute (2) Anxiety and depression Code(s): F41.9 - ANXIETY DISORDER, UNSPECIFIED; F32.9 - MAJOR DEPRESSIVE DISORDER, SINGLE EPISODE, UNSPECIFIED Status: Chronic (3) CKD (chronic kidney disease), stage III Code(s): N18.3 - CHRONIC KIDNEY DISEASE, STAGE 3 (MODERATE) Status: Chronic (4) Chronic pain Code(s): G89.29 - OTHER CHRONIC PAIN Status: Chronic Qualifiers: Chronic pain type: chronic pain syndrome Qualified Code(s): G89.4 - Chronic pain syndrome (5) Chronic respiratory failure with hypoxia, on home O2 therapy Code(s): J96.11 - CHRONIC RESPIRATORY FAILURE WITH HYPOXIA; Z99.81 - DEPENDENCE ON SUPPLEMENTAL OXYGEN Status: Chronic (6) GERD (gastroesophageal reflux disease) Code(s): K21.9 - GASTRO-ESOPHAGEAL REFLUX DISEASE WITHOUT ESOPHAGITIS Status: Chronic (7) ANNA (acute kidney injury) Code(s): N17.9 - ACUTE KIDNEY FAILURE, UNSPECIFIED Status: Resolved (8) Chronic anemia Code(s): D64.9 - ANEMIA, UNSPECIFIED Status: Chronic - Plan is on ceftriaxone CT chest images noted, no significant effusion seen on left side PT to mobilize as tolerated conitnue nebs, asp, neurontin high dose, buspar bid, fluoxetine, ropinirole, tizanidine watch for resp depression with above meds, she wants all her meds to be continued. anna is better, will check labs today appreciate 's help hemostable
[2019-06-15 11:53] LABS: #Eosinphils 0.2 thou/uL (0.0-0.7); #Lymphocytes 1.9 thou/uL (1.20-3.40); #Monocytes 0.6 thou/uL (0.11-0.59); #Neutrophils 8.8 thou/uL (1.40-6.50); %Basophils 0.4 % (0.0-1.0); %Eosinophils 1.4 % (0.0-10.0); %Lymphocytes 16.6 % (21.0-51.0); %Monocytes 4.8 % (0.0-10.0); %Neutrophils 76.9 % (42.0-75.0); Hemoglobin 10.4 g/dL (12.0-16.0); Mean Corpuscular HGB CONC 31.2 g/dL (32.0-36.0); Mean Corpuscular Hemoglobin 28.9 pg (27.0-31.0); Mean Corpuscular Volume 92.7 fL (78.0-98.0); Mean Platelet Volume 6.8 fL (7.4-10.4); Platelet Count 222 thou/uL (130-400); RBC Distribution Width 13.1 % (11.5-14.5); Red Blood Cell (RBC) Count 3.58 mill/uL (4.20-5.40); White Blood Cell (WBC) Count 11.5 thou/uL (4.8-10.8)
[2019-06-15 12:10] LABS: ALT (SGPT) Less than 7 U/L (8-55); AST (SGOT) 13 U/L (5-34); Alkaline Phosphatase 33 U/L (40-110); Anion Gap 11 mmol/L (10-20); BUN (Urea Nitrogen) 17 mg/dL (9.8-20.1); Bilirubin, Total 0.5 mg/dL (0.2-1.2); Calc. Creatinine Clearance 48 mL/min (70-130); Calcium 8.3 mg/dL (7.8-10.44); Carbon Dioxide 24 mmol/L (23-31); Chloride 110 mmol/L (98-107); Estimated GFR-MDRD 49; Glucose 79 mg/dL (83-110); Potassium 3.9 mmol/L (3.5-5.1); Sodium 141 mmol/L (136-145)
--- NOTE | 2019-06-15 14:21 | PRG ---
DATE OF SERVICE: 06/15/2019 SUBJECTIVE: Ms. Quach is afebrile, heart rate is in the 80s, respiratory rate 20s, blood pressure 110/80. She is still coughing, still has nausea, making it unlikely the azithromycin, which is causing her nausea. OBJECTIVE: LUNGS: Remarkable for coarse, equal breath sounds. HEART: Regular rhythm. ABDOMEN: Soft. LABORATORY DATA: White count 11.5, hemoglobin 10.4, and platelets 222. Electrolytes normal. IMPRESSION: Pneumonia. PLAN: Continue antimicrobial therapy. Job ID: [id number]
[2019-06-15] MEDS: Diabetic Tussin 200 MG/10 ML UDCUP PO PRN (20:56)
[2019-06-15] MEDS: Topiramate 25 MG TAB PO SCH (21:50)
[2019-06-15] MEDS: rOPINIRole HCl 0.5 MG TAB PO SCH (21:50)
[2019-06-16] MEDS: Acetaminophen/Codeine 30-300mg Tablet PO PRN ×3 (01:30→22:46)
[2019-06-16 05:40] LABS: #Eosinphils 0.3 thou/uL (0.0-0.7); #Lymphocytes 1.8 thou/uL (1.20-3.40); #Monocytes 0.8 thou/uL (0.11-0.59); #Neutrophils 6.8 thou/uL (1.40-6.50); %Basophils 0.5 % (0.0-1.0); %Eosinophils 3.5 % (0.0-10.0); %Lymphocytes 18.7 % (21.0-51.0); %Monocytes 7.8 % (0.0-10.0); %Neutrophils 69.5 % (42.0-75.0); Hemoglobin 10.1 g/dL (12.0-16.0); Mean Corpuscular HGB CONC 31.7 g/dL (32.0-36.0); Mean Corpuscular Hemoglobin 29.4 pg (27.0-31.0); Mean Corpuscular Volume 92.6 fL (78.0-98.0); Mean Platelet Volume 6.7 fL (7.4-10.4); Platelet Count 220 thou/uL (130-400); RBC Distribution Width 12.9 % (11.5-14.5); Red Blood Cell (RBC) Count 3.44 mill/uL (4.20-5.40); White Blood Cell (WBC) Count 9.8 thou/uL (4.8-10.8)
[2019-06-16 06:00] LABS: Anion Gap 11 mmol/L (10-20); BUN (Urea Nitrogen) 15 mg/dL (9.8-20.1); Calc. Creatinine Clearance 49 mL/min (70-130); Calcium 8.3 mg/dL (7.8-10.44); Carbon Dioxide 23 mmol/L (23-31); Chloride 110 mmol/L (98-107); Estimated GFR-MDRD 49; Glucose 102 mg/dL (83-110); Potassium 3.6 mmol/L (3.5-5.1); Sodium 140 mmol/L (136-145)
[2019-06-16] MEDS: busPIRone HCl 10 MG TAB PO SCH ×2 (08:58→20:02)
[2019-06-16] MEDS: Saccharomyces boulardii 250 MG CAP PO SCH ×2 (08:58→20:01)
[2019-06-16] MEDS: Gabapentin 300 MG CAP PO SCH ×3 (08:58→20:01)
[2019-06-16] MEDS: Enoxaparin Sodium 30 MG/0.3 ML SYRINGE SC SCH (08:58)
[2019-06-16] MEDS: FLUoxetine HCl 20 MG CAP PO SCH (08:58)
[2019-06-16] MEDS: Betamethasone 0.1% Cream 15 GM TUBE TOP SCH ×2 (09:00→20:02)
[2019-06-16] MEDS: Doxepin HCl 25 MG CAP PO SCH (09:01)
[2019-06-16] MEDS: cefTRIAXone\\ROCEPHIN 1 GM in Sodium Chloride 0.9% 100 ML IVPB SCH (09:14)
[2019-06-16] MEDS: Diabetic Tussin 200 MG/10 ML UDCUP PO PRN ×2 (09:19→20:01)
--- NOTE | 2019-06-16 09:55 | PRG ---
DATE OF SERVICE: 06/16/2019 SUBJECTIVE: Zunilda Quach' nausea is resolved. She is having a little bit of pleuritic chest pain in her left upper anterior chest. She denies shortness of breath. The area of her pleuritic pain is the area, where she has the most dense infiltrates on her chest CT. OBJECTIVE: VITAL SIGNS: She is afebrile, heart rates 95% to 100%, respiratory rate is 20, oximetry is 97% to 100% on nasal cannula, and blood pressure 119/82. LUNGS: Clear. HEART: Regular rhythm. ABDOMEN: Soft. EXTREMITIES: Without edema. LABORATORY DATA: White count 9.8, hemoglobin 10.1, platelets 220. Sodium 140, potassium 3.6, chloride 110, bicarb 23, BUN 15, and creatinine 1.08. IMPRESSION: 1. Pneumonia, slowly improving. 2. Nausea, resolved of unclear etiology. She was convinced it was related to azithromycin, but given that it continued for significant period of time and becomes a less likely possible cause. Either way, she is happy that the nausea is gone. In my opinion, she can be switched to p.o. antimicrobial therapy at this point. Job ID: [id number]
--- NOTE | 2019-06-16 11:26 | PDOC.HOSPP ---
- Subjective Encounter Date: 06/16/19 Encounter Time: 09:15 Subjective: awake, breathing better, no nausea or coughing spells ate her dinner well, is not a breakfast person per patient - Objective Vital Signs & Weight: Vital Signs (12 hours) Temp Pulse Resp BP Pulse Ox 06/16/19 08:00 99.1 F 100 20 119/82 97 06/16/19 06:50 95 18 100 06/16/19 01:30 98.7 F 85 18 129/70 96 Weight Admit Weight 153 lb 14.72 oz Weight 153 lb 14.72 oz I&O: 06/15/19 06/16/19 06/17/19 06:59 06:59 06:59 Intake Total 500 Output Total 650 750 Balance -650 -250 Result Diagrams: 06/16/19 05:31 06/16/19 05:31 Hospitalist ROS - Medication Medications: Active Medications Generic Name Dose Route Start Last Admin Trade Name Freq PRN Reason Stop Dose Admin Acetaminophen 650 mg 06/13/19 10:45 06/14/19 04:48 Tylenol PO 650 mg Q4H PRN Administration Headache/Fever/Mild Pain (1-3) Acetaminophen/Codeine Phosphate 1 tab 06/14/19 09:52 06/16/19 09:19 Tylenol #3 PO 1 tab Q4H PRN Administration Moderate Pain (4-6) Albuterol/Ipratropium 3 ml 06/15/19 13:00 06/16/19 06:50 Duoneb NEB 3 ml [id number] HANNAH Administration Benzonatate 100 mg 06/14/19 09:52 06/15/19 08:20 Tessalon PO 100 mg Q6H PRN Administration Cough Betamethasone Valerate 0 gm 06/14/19 21:00 06/16/19 09:00 Valisone 0.1% Cream TOP 1 applic BID HANNAH Administration Buspirone HCl 30 mg 06/13/19 21:00 06/16/19 08:58 Buspar PO 30 mg BID HANNAH Administration Doxepin HCl 50 mg 06/15/19 09:00 06/16/19 09:01 Sinequan PO Not Given DAILY HANNAH Enoxaparin Sodium 30 mg 06/14/19 09:00 06/16/19 08:58 Lovenox SC 30 mg 0900 HANNAH Administration Fluoxetine HCl 40 mg 06/14/19 09:00 06/16/19 08:58 Prozac PO 40 mg DAILY HANNAH Administration Gabapentin 900 mg 06/14/19 15:00 06/16/19 08:58 Neurontin PO 900 mg TID HANNAH Administration Guaifenesin 200 mg 06/13/19 21:21 06/16/19 09:19 Robitussin Sf PO 200 mg Q4H PRN Administration Cough Ondansetron HCl 4 mg 06/13/19 10:45 06/15/19 06:28 Zofran Odt PO 4 mg Q6H PRN Administration Nausea/Vomiting Ondansetron HCl 8 mg 06/14/19 16:11 06/15/19 02:22 Zofran IVP 8 mg Q6H PRN Administration Nausea/Vomiting Pantoprazole Sodium 40 mg 06/15/19 21:00 06/16/19 08:58 Protonix PO 40 mg BID HANNAH Administration Ropinirole HCl 0.5 mg 06/13/19 21:00 06/15/19 21:50 Requip PO 0.5 mg HS HANNAH Administration Saccharomyces Boulardii 250 mg 06/14/19 21:00 06/16/19 08:58 Florastor PO 250 mg BID HANNAH Administration Topiramate 50 mg 06/14/19 21:00 06/15/19 21:50 Topamax PO 50 mg HS HANNAH Administration Tramadol HCl 50 mg 06/14/19 09:52 06/14/19 11:02 Ultram PO 50 mg Q6H PRN Administration Mild Pain (1-3) - Exam General Appearance: awake alert Eye: PERRL, anicteric sclera ENT: no oropharyngeal lesions, moist mucosa Neck: supple, no JVD Heart: RRR, no murmur Respiratory: no wheezes, no rales Gastrointestinal: soft, non-tender, non-distended, normal bowel sounds Extremities: no cyanosis, no edema Neurological: cranial nerve grossly intact, no focal deficits Psychiatric: normal affect, A&O x 3 Hosp A/P (1) Sepsis due to pneumonia Code(s): J18.9 - PNEUMONIA, UNSPECIFIED ORGANISM; A41.9 - SEPSIS, UNSPECIFIED ORGANISM Status: Acute (2) Anxiety and depression Code(s): F41.9 - ANXIETY DISORDER, UNSPECIFIED; F32.9 - MAJOR DEPRESSIVE DISORDER, SINGLE EPISODE, UNSPECIFIED Status: Chronic (3) CKD (chronic kidney disease), stage III Code(s): N18.3 - CHRONIC KIDNEY DISEASE, STAGE 3 (MODERATE) Status: Chronic (4) Chronic pain Code(s): G89.29 - OTHER CHRONIC PAIN Status: Chronic Qualifiers: Chronic pain type: chronic pain syndrome Qualified Code(s): G89.4 - Chronic pain syndrome (5) Chronic respiratory failure with hypoxia, on home O2 therapy Code(s): J96.11 - CHRONIC RESPIRATORY FAILURE WITH HYPOXIA; Z99.81 - DEPENDENCE ON SUPPLEMENTAL OXYGEN Status: Chronic (6) GERD (gastroesophageal reflux disease) Code(s): K21.9 - GASTRO-ESOPHAGEAL REFLUX DISEASE WITHOUT ESOPHAGITIS Status: Chronic (7) ANNA (acute kidney injury) Code(s): N17.9 - ACUTE KIDNEY FAILURE, UNSPECIFIED Status: Resolved (8) Chronic anemia Code(s): D64.9 - ANEMIA, UNSPECIFIED Status: Chronic - Plan is on omnicef CT chest images noted, no significant effusion seen on left side PT to mobilize as tolerated conitnue nebs, asp, neurontin high dose, buspar bid, fluoxetine, ropinirole, tizanidine watch for resp depression with above meds, she wants all her meds to be continued. appreciate 's help hemostable dc plan in am to snf if stable
[2019-06-16] MEDS: Cefdinir 300 MG CAP PO SCH (20:02)
[2019-06-16] MEDS: Topiramate 25 MG TAB PO SCH (20:02)
[2019-06-16] MEDS: rOPINIRole HCl 0.5 MG TAB PO SCH (20:02)
[2019-06-17] MEDS: Acetaminophen/Codeine 30-300mg Tablet PO PRN ×2 (03:53→20:48)
[2019-06-17] MEDS ORDERED: ALPRAZolam 0.25 MG TAB PO SCH (04:45)
[2019-06-17 05:14] LABS: #Basophils 0.1 thou/uL (0.0-0.2); #Eosinphils 0.4 thou/uL (0.0-0.7); #Monocytes 0.5 thou/uL (0.11-0.59); #Neutrophils 4.4 thou/uL (1.40-6.50); %Basophils 0.8 % (0.0-1.0); %Eosinophils 5.3 % (0.0-10.0); %Lymphocytes 27.5 % (21.0-51.0); %Monocytes 6.5 % (0.0-10.0); %Neutrophils 59.9 % (42.0-75.0); Hemoglobin 10.4 g/dL (12.0-16.0); Mean Corpuscular Hemoglobin 30.8 pg (27.0-31.0); Mean Corpuscular Volume 93.5 fL (78.0-98.0); Mean Platelet Volume 6.5 fL (7.4-10.4); Platelet Count 227 thou/uL (130-400); RBC Distribution Width 12.8 % (11.5-14.5); Red Blood Cell (RBC) Count 3.37 mill/uL (4.20-5.40); White Blood Cell (WBC) Count 7.3 thou/uL (4.8-10.8)
[2019-06-17 05:54] LABS: Anion Gap 11 mmol/L (10-20); BUN (Urea Nitrogen) 11 mg/dL (9.8-20.1); Calc. Creatinine Clearance 53 mL/min (70-130); Calcium 8.6 mg/dL (7.8-10.44); Carbon Dioxide 26 mmol/L (23-31); Chloride 109 mmol/L (98-107); Estimated GFR-MDRD 55; Glucose 99 mg/dL (83-110); Potassium 3.7 mmol/L (3.5-5.1); Sodium 142 mmol/L (136-145)
[2019-06-17] MEDS: Cefdinir 300 MG CAP PO SCH ×2 (09:00→20:46)
[2019-06-17] MEDS: busPIRone HCl 10 MG TAB PO SCH ×2 (09:01→20:45)
[2019-06-17] MEDS: Enoxaparin Sodium 30 MG/0.3 ML SYRINGE SC SCH (09:01)
[2019-06-17] MEDS: Gabapentin 300 MG CAP PO SCH ×3 (09:01→20:45)
[2019-06-17] MEDS: FLUoxetine HCl 20 MG CAP PO SCH (09:01)
[2019-06-17] MEDS: Saccharomyces boulardii 250 MG CAP PO SCH ×2 (09:01→20:45)
[2019-06-17] MEDS: Betamethasone 0.1% Cream 15 GM TUBE TOP SCH ×2 (09:02→20:51)
[2019-06-17] MEDS: Doxepin HCl 25 MG CAP PO SCH (10:42)
--- NOTE | 2019-06-17 14:11 | PDOC.HOSPP ---
- Subjective Encounter Date: 06/17/19 Encounter Time: 09:15 Subjective: Pt. cough better today. Working with PT. Eating better, no nausea. - Objective Vital Signs & Weight: Vital Signs (12 hours) Temp Pulse Resp BP Pulse Ox 06/17/19 12:04 97.3 F L 89 20 124/79 97 06/17/19 09:00 97 06/17/19 07:13 97.6 F 92 20 121/72 97 06/17/19 06:54 87 18 95 06/17/19 05:30 97.7 F 91 20 120/65 96 Weight Admit Weight 153 lb 14.72 oz Weight 153 lb 14.72 oz I&O: 06/16/19 06/17/19 06/18/19 06:59 06:59 06:59 Intake Total 1000 Output Total 1550 400 Balance -550 -400 Result Diagrams: 06/17/19 04:36 06/17/19 04:36 Hospitalist ROS - Medication Medications: Active Medications Generic Name Dose Route Start Last Admin Trade Name Freq PRN Reason Stop Dose Admin Acetaminophen 650 mg 06/13/19 10:45 06/14/19 04:48 Tylenol PO 650 mg Q4H PRN Administration Headache/Fever/Mild Pain (1-3) Acetaminophen/Codeine Phosphate 1 tab 06/14/19 09:52 06/17/19 03:53 Tylenol #3 PO 1 tab Q4H PRN Administration Moderate Pain (4-6) Albuterol/Ipratropium 3 ml 06/15/19 13:00 06/17/19 06:54 Duoneb NEB 3 ml [id number] HANNAH Administration Benzonatate 100 mg 06/14/19 09:52 06/15/19 08:20 Tessalon PO 100 mg Q6H PRN Administration Cough Betamethasone Valerate 0 gm 06/14/19 21:00 06/17/19 09:02 Valisone 0.1% Cream TOP 1 applic BID HANNAH Administration Buspirone HCl 30 mg 06/13/19 21:00 06/17/19 09:01 Buspar PO 30 mg BID HANNAH Administration Cefdinir 300 mg 06/16/19 21:00 06/17/19 09:00 Omnicef PO 300 mg BID HANNAH Administration Doxepin HCl 50 mg 06/15/19 09:00 06/17/19 10:42 Sinequan PO 50 mg DAILY HANNAH Administration Enoxaparin Sodium 30 mg 06/14/19 09:00 06/17/19 09:01 Lovenox SC 30 mg 0900 HANNAH Administration Fluoxetine HCl 40 mg 06/14/19 09:00 06/17/19 09:01 Prozac PO 40 mg DAILY HANNAH Administration Gabapentin 900 mg 06/14/19 15:00 06/17/19 09:01 Neurontin PO 900 mg TID HANNAH Administration Guaifenesin 200 mg 06/13/19 21:21 06/16/19 20:01 Robitussin Sf PO 200 mg Q4H PRN Administration Cough Ondansetron HCl 4 mg 06/13/19 10:45 06/15/19 06:28 Zofran Odt PO 4 mg Q6H PRN Administration Nausea/Vomiting Ondansetron HCl 8 mg 06/14/19 16:11 06/15/19 02:22 Zofran IVP 8 mg Q6H PRN Administration Nausea/Vomiting Pantoprazole Sodium 40 mg 06/15/19 21:00 06/17/19 09:01 Protonix PO 40 mg BID HANNAH Administration Ropinirole HCl 0.5 mg 06/13/19 21:00 06/16/19 20:02 Requip PO 0.5 mg HS [facility] Administration Saccharomyces Boulardii 250 mg 06/14/19 21:00 06/17/19 09:01 Florastor PO 250 mg BID HANNAH Administration Topiramate 50 mg 06/14/19 21:00 06/16/19 20:02 Topamax PO 50 mg HS HANNAH Administration Tramadol HCl 50 mg 06/14/19 09:52 06/14/19 11:02 Ultram PO 50 mg Q6H PRN Administration Mild Pain (1-3) - Exam General Appearance: NAD, awake alert Eye: PERRL, anicteric sclera ENT: no oropharyngeal lesions, moist mucosa Neck: supple, no JVD Heart: RRR, no murmur Respiratory: no wheezes, no ronchi Gastrointestinal: soft, non-tender, non-distended, normal bowel sounds Extremities: no cyanosis, no edema Neurological: cranial nerve grossly intact, no focal deficits Psychiatric: normal affect, A&O x 3 Hosp A/P (1) Sepsis due to pneumonia Code(s): J18.9 - PNEUMONIA, UNSPECIFIED ORGANISM; A41.9 - SEPSIS, UNSPECIFIED ORGANISM Status: Acute Plan: CAP (2) Anxiety and depression Code(s): F41.9 - ANXIETY DISORDER, UNSPECIFIED; F32.9 - MAJOR DEPRESSIVE DISORDER, SINGLE EPISODE, UNSPECIFIED Status: Chronic (3) CKD (chronic kidney disease), stage III Code(s): N18.3 - CHRONIC KIDNEY DISEASE, STAGE 3 (MODERATE) Status: Chronic (4) Chronic pain Code(s): G89.29 - OTHER CHRONIC PAIN Status: Chronic Qualifiers: Chronic pain type: chronic pain syndrome Qualified Code(s): G89.4 - Chronic pain syndrome (5) Chronic respiratory failure with hypoxia, on home O2 therapy Code(s): J96.11 - CHRONIC RESPIRATORY FAILURE WITH HYPOXIA; Z99.81 - DEPENDENCE ON SUPPLEMENTAL OXYGEN Status: Chronic (6) GERD (gastroesophageal reflux disease) Code(s): K21.9 - GASTRO-ESOPHAGEAL REFLUX DISEASE WITHOUT ESOPHAGITIS Status: Chronic (7) ANNA (acute kidney injury) Code(s): N17.9 - ACUTE KIDNEY FAILURE, UNSPECIFIED Status: Resolved (8) Chronic anemia Code(s): D64.9 - ANEMIA, UNSPECIFIED Status: Chronic - Plan is on omnicef CT chest images noted, no significant effusion seen on left side PT to mobilize as tolerated conitnue nebs, asp, neurontin high dose, buspar bid, fluoxetine, ropinirole, tizanidine watch for resp depression with above meds, she wants all her meds to be continued. appreciate 's help hemostable dc plan to snf if placement is ready
[2019-06-17] MEDS: Topiramate 25 MG TAB PO SCH (20:45)
[2019-06-17] MEDS: rOPINIRole HCl 0.5 MG TAB PO SCH (20:45)
[2019-06-17] MEDS: Benzonatate 100 MG CAP PO PRN (20:48)
[2019-06-18 05:10] LABS: #Basophils 0.1 thou/uL (0.0-0.2); #Eosinphils 0.6 thou/uL (0.0-0.7); #Lymphocytes 1.7 thou/uL (1.20-3.40); #Monocytes 0.6 thou/uL (0.11-0.59); %Basophils 0.7 % (0.0-1.0); %Eosinophils 7.2 % (0.0-10.0); %Lymphocytes 21.1 % (21.0-51.0); %Monocytes 7.4 % (0.0-10.0); %Neutrophils 63.6 % (42.0-75.0); Hemoglobin 10.5 g/dL (12.0-16.0); Mean Corpuscular HGB CONC 31.2 g/dL (32.0-36.0); Mean Platelet Volume 6.6 fL (7.4-10.4); Platelet Count 254 thou/uL (130-400); RBC Distribution Width 12.8 % (11.5-14.5); Red Blood Cell (RBC) Count 3.61 mill/uL (4.20-5.40); White Blood Cell (WBC) Count 7.9 thou/uL (4.8-10.8)
[2019-06-18 05:29] LABS: Anion Gap 7 mmol/L (10-20); BUN (Urea Nitrogen) 12 mg/dL (9.8-20.1); Calc. Creatinine Clearance 56 mL/min (70-130); Calcium 8.8 mg/dL (7.8-10.44); Carbon Dioxide 31 mmol/L (23-31); Chloride 109 mmol/L (98-107); Estimated GFR-MDRD 58; Glucose 102 mg/dL (83-110); Sodium 143 mmol/L (136-145)
[2019-06-18] MEDS: Benzonatate 100 MG CAP PO PRN (05:59)
[2019-06-18] MEDS: Acetaminophen/Codeine 30-300mg Tablet PO PRN ×2 (06:01→10:49)
[2019-06-18] MEDS: Saccharomyces boulardii 250 MG CAP PO SCH (08:12)
[2019-06-18] MEDS: Gabapentin 300 MG CAP PO SCH (08:12)
[2019-06-18] MEDS: Doxepin HCl 25 MG CAP PO SCH (08:12)
[2019-06-18] MEDS: busPIRone HCl 10 MG TAB PO SCH (08:12)
[2019-06-18] MEDS: FLUoxetine HCl 20 MG CAP PO SCH (08:13)
[2019-06-18] MEDS: Enoxaparin Sodium 30 MG/0.3 ML SYRINGE SC SCH (08:13)
[2019-06-18] MEDS: Betamethasone 0.1% Cream 15 GM TUBE TOP SCH (08:13)
[2019-06-18] MEDS: Cefdinir 300 MG CAP PO SCH (08:13)
[2019-06-18 12:34] VITALS: BP 123/87; TEMP 98.8
--- NOTE | 2019-06-18 14:00 | PDOC.HOSPP ---
- Subjective Encounter Date: 06/18/19 Encounter Time: 09:00 Subjective: eating breakfast, feels better she does not want doxepin - Objective Vital Signs & Weight: Vital Signs (12 hours) Temp Pulse Resp BP Pulse Ox 06/18/19 12:34 98.8 F 98 16 123/87 95 06/18/19 08:20 92 L 06/18/19 08:18 98.3 F 99 18 115/74 92 L 06/18/19 06:49 83 16 96 06/18/19 05:00 98.1 F 100 18 132/84 98 Weight Admit Weight 153 lb 14.72 oz Weight 153 lb 14.72 oz I&O: 06/17/19 06/18/19 06/19/19 06:59 06:59 06:59 Intake Total 1000 1190 Output Total 1550 1400 Balance -550 -210 Result Diagrams: 06/18/19 04:43 06/18/19 04:43 Hospitalist ROS - Medication Medications: Active Medications Generic Name Dose Route Start Last Admin Trade Name Freq PRN Reason Stop Dose Admin Acetaminophen 650 mg 06/13/19 10:45 06/14/19 04:48 Tylenol PO 650 mg Q4H PRN Administration Headache/Fever/Mild Pain (1-3) Acetaminophen/Codeine Phosphate 1 tab 06/14/19 09:52 06/18/19 10:49 Tylenol #3 PO 1 tab Q4H PRN Administration Moderate Pain (4-6) Albuterol/Ipratropium 3 ml 06/15/19 13:00 06/18/19 12:48 Duoneb NEB Not Given [id number] HANNAH Benzonatate 100 mg 06/14/19 09:52 06/18/19 05:59 Tessalon PO 100 mg Q6H PRN Administration Cough Betamethasone Valerate 0 gm 06/14/19 21:00 06/18/19 08:13 Valisone 0.1% Cream TOP 1 applic BID HANNAH Administration Buspirone HCl 30 mg 06/13/19 21:00 06/18/19 08:12 Buspar PO 30 mg BID HANNAH Administration Cefdinir 300 mg 06/16/19 21:00 06/18/19 08:13 Omnicef PO 300 mg BID HANNAH Administration Doxepin HCl 50 mg 06/15/19 09:00 06/18/19 08:12 Sinequan PO 50 mg DAILY HANNAH Administration Enoxaparin Sodium 30 mg 06/14/19 09:00 06/18/19 08:13 Lovenox SC 30 mg 0900 HANNAH Administration Fluoxetine HCl 40 mg 06/14/19 09:00 06/18/19 08:13 Prozac PO 40 mg DAILY HANNAH Administration Gabapentin 900 mg 06/14/19 15:00 06/18/19 08:12 Neurontin PO 900 mg TID HANNAH Administration Guaifenesin 200 mg 06/13/19 21:21 06/16/19 20:01 Robitussin Sf PO 200 mg Q4H PRN Administration Cough Ondansetron HCl 4 mg 06/13/19 10:45 06/15/19 06:28 Zofran Odt PO 4 mg Q6H PRN Administration Nausea/Vomiting Ondansetron HCl 8 mg 06/14/19 16:11 06/15/19 02:22 Zofran IVP 8 mg Q6H PRN Administration Nausea/Vomiting Pantoprazole Sodium 40 mg 06/15/19 21:00 06/18/19 08:13 Protonix PO 40 mg BID HANNAH Administration Ropinirole HCl 0.5 mg 06/13/19 21:00 06/17/19 20:45 Requip PO 0.5 mg HS [facility] Administration Saccharomyces Boulardii 250 mg 06/14/19 21:00 06/18/19 08:12 Florastor PO 250 mg BID HANNAH Administration Topiramate 50 mg 06/14/19 21:00 06/17/19 20:45 Topamax PO 50 mg HS [facility] Administration Tramadol HCl 50 mg 06/14/19 09:52 06/14/19 11:02 Ultram PO 50 mg Q6H PRN Administration Mild Pain (1-3) - Exam General Appearance: awake alert Eye: PERRL, anicteric sclera ENT: no oropharyngeal lesions, moist mucosa Neck: supple, no JVD Heart: RRR, no murmur Respiratory: no wheezes, no rales Gastrointestinal: soft, non-tender, non-distended, normal bowel sounds Extremities: no cyanosis, no edema Neurological: cranial nerve grossly intact, no focal deficits Psychiatric: A&O x 3 Hosp A/P (1) Sepsis due to pneumonia Code(s): J18.9 - PNEUMONIA, UNSPECIFIED ORGANISM; A41.9 - SEPSIS, UNSPECIFIED ORGANISM Status: Acute (2) Anxiety and depression Code(s): F41.9 - ANXIETY DISORDER, UNSPECIFIED; F32.9 - MAJOR DEPRESSIVE DISORDER, SINGLE EPISODE, UNSPECIFIED Status: Chronic (3) CKD (chronic kidney disease), stage III Code(s): N18.3 - CHRONIC KIDNEY DISEASE, STAGE 3 (MODERATE) Status: Chronic (4) Chronic pain Code(s): G89.29 - OTHER CHRONIC PAIN Status: Chronic Qualifiers: Chronic pain type: chronic pain syndrome Qualified Code(s): G89.4 - Chronic pain syndrome (5) Chronic respiratory failure with hypoxia, on home O2 therapy Code(s): J96.11 - CHRONIC RESPIRATORY FAILURE WITH HYPOXIA; Z99.81 - DEPENDENCE ON SUPPLEMENTAL OXYGEN Status: Chronic (6) GERD (gastroesophageal reflux disease) Code(s): K21.9 - GASTRO-ESOPHAGEAL REFLUX DISEASE WITHOUT ESOPHAGITIS Status: Chronic (7) ANNA (acute kidney injury) Code(s): N17.9 - ACUTE KIDNEY FAILURE, UNSPECIFIED Status: Resolved (8) Chronic anemia Code(s): D64.9 - ANEMIA, UNSPECIFIED Status: Chronic - Plan is on omnicef CT chest images noted, no significant effusion seen on left side PT to mobilize as tolerated conitnue nebs, asp, neurontin high dose, buspar bid, fluoxetine, ropinirole, tizanidine watch for resp depression with above meds, she wants all her meds to be continued. appreciate 's help hemostable dc plan to [facility] today
--- NOTE | 2019-06-18 16:32 | DIS ---
DATE OF ADMISSION: 06/13/2019 DATE OF DISCHARGE: 06/18/2019 DISCHARGE DISPOSITION: [facility]. PRIMARY DISCHARGE DIAGNOSES: 1. Pneumonia. 2. Sepsis secondary to above. 3. Deconditioning. SECONDARY DISCHARGE DIAGNOSES: Chronic kidney disease, stage 3; anxiety; depression; chronic pain; chronic respiratory failure with hypoxia, on home oxygen; gastroesophageal reflux disease; acute kidney injury, resolved and chronic anemia. PROCEDURES DONE DURING HOSPITALIZATION: The patient has had initial chest x-ray, which showed findings concerning for left lower lobe pneumonia with parapneumonic effusion. A CT chest done showed nodular and patchy parenchymal densities as well as interstitial density seen within the left upper lobe to a greater extent in the left lower lobe worrisome for infectious process. Small bilateral pleural effusion larger in size on the left hiatal hernia. Echo with 2D Doppler showed EF of 50% to 55%. Left atrium was moderately dilated. Mild to moderate mitral regurgitation. Blood cultures x2, no growth. Urine culture, no growth. Influenza A and B antigens were negative. Had a white count of with 59% neutrophils and 31% bands on the 17th. Discharge white count of 7.9, H and H of 10 and 33 with 63% neutrophils on the day of discharge. Initial BUN and creatinine of 33 and 1.9. Discharge BUN and creatinine of 12 and 0.9. DISCHARGE MEDICATIONS: 1. Tylenol No.3 q.4 hourly p.r.n. 2. BuSpar 30 mg twice daily. 3. Dexilant 60 mg daily. 4. Fluoxetine 40 mg daily. 5. Lasix 40 mg to alternate with 20 mg daily. 6. Gabapentin 900 mg p.o. 3 times daily. 7. Ropinirole 0.5 mg p.o. at bedtime. 8. Topiramate 50 mg p.o. at bedtime. 9. Ultram p.r.n. 10. Tessalon Perles 100 mg p.o. q.6 hourly p.r.n. 11. Omnicef 300 mg p.o. twice daily for 7 days. 12. DuoNeb q.6 hourly. 13. Florastor 250 mg twice daily. ALLERGIES: ALLERGIC TO BACITRACIN, LATEX, NEOMYCIN, PENICILLIN, POLYMYXIN B, AND SULFA. DISCHARGE PLAN: The patient to follow up with Dr. De La Rosa in 2 to 3 weeks. She needs to follow up with Dr. Cristobal, her primary care physician in 1 week. BRIEF COURSE DURING HOSPITALIZATION: The patient initially got admitted on the with complaints of cough and fever of 102. The patient was found to have had left lower lobe pneumonia with acute on chronic hypoxic respiratory failure. She was placed on IV antibiotics and has been transitioned to Omnicef. The patient complained of nausea for the first two days and her Zithromax was discontinued. She was evaluated by Dr. De La Rosa as well. Initial suspicion was for parapneumonic effusion on the left side. A CT chest was done, which did not reveal any significant effusion or signs of empyema. The patient responded well to IV antibiotics and has been transitioned to Omnicef. She has deconditioning and has ambulated around 40 to 50 feet with a rolling walker and physical therapy. In view of deconditioning, she is being discharged to [facility] for further recuperation prior to going home. A total of 35 minutes was spent on discharge plan. Please see a [id number] documentation for the day of discharge on [employer]. Job ID: [id number]
== END 2019-06-18 14:06 | DRG 871 ==
LOC: ERS 08:32 → T4-B 10:19
PROVIDERS: ADMIT Internal Medicine; ATTEND Internal Medicine
DX: A41.9 Sepsis, unspecified organism (principal); J18.9 Pneumonia, unspecified organism; J96.21 Acute and chronic respiratory failure with hypoxia; N17.9 Acute kidney failure, unspecified; F41.9 Anxiety disorder, unspecified; F32.9 Major depressive disorder, single episode, unspecified; F42.9 Obsessive-compulsive disorder, unspecified; M79.7 Fibromyalgia; G62.9 Polyneuropathy, unspecified; G25.81 Restless legs syndrome; Z96.641 Presence of right artificial hip joint; N18.3 Chronic kidney disease, stage 3 (moderate); G89.4 Chronic pain syndrome; K21.9 Gastro-esophageal reflux disease without esophagitis; D63.1 Anemia in chronic kidney disease; R11.0 Nausea; Z90.49 Acquired absence of other specified parts of digestive tract; Z87.891 Personal history of nicotine dependence; Z79.82 Long term (current) use of aspirin; Z90.710 Acquired absence of both cervix and uterus; Z88.1 Allergy status to other antibiotic agents; Z88.0 Allergy status to penicillin; Z88.2 Allergy status to sulfonamides; Z88.8 Allergy status to other drugs, medicaments and biological substances; Z91.040 Latex allergy status; Z79.899 Other long term (current) drug therapy; Z99.81 Dependence on supplemental oxygen
CPT/HCPCS: 36415; 71045; 71250; 80048; 80053; 81003; 83605; 83880; 85025; 87040; 87086; 87804; 93005; 93306; 94640; 94760; A4353; J0456; J0696; J1650; J1940; J1956; J2405; J3370; J3490; J7050; J7620; Q0162

== ENCOUNTER 2019-12-03 12:02 | Outpatient (CLI) | payer MEDICARE, MEDICAID ==
--- NOTE | 2019-12-03 13:40 | MRI ---
MRI BRAIN NONCONTRAST: DATE: 12/03/2019 HISTORY: 74-year-old female "G 43.009, migraine without aura and without status migrainosus, not intractable" FINDINGS: This was ordered as MRI with and without contrast. medicine technologist converted to noncontrast due to l ow GFR of 31. At the time of this dictation, T2 axial weighted sequence was omitted inadvertently. There is no obstructive hydrocephalus. There is no midline shift or any other evidence of mass effect . There is no extra-axial fluid collection. There is a moderate degree of T2-hyperintensities in the cerebral white matter consistent with chronic ischemic white matter changes due to microvascular atherosclerosis. There is no evidence of recent hemorrhage or restricted diffusion. IMPRESSION: 1) moderate chronic ischemic white matter changes. 2) otherwise negative
== END 2019-12-03 12:03 | disposition home or self-care (01) ==
LOC: SCSMRI 12:02
PROVIDERS: ATTEND Psychiatry & Neurology Neurology
DX: G43.009 Migraine without aura, not intractable, without status migrainosus (principal); G93.89 Other specified disorders of brain
CPT/HCPCS: 70551; 82565

== ENCOUNTER 2020-07-14 03:17 | Emergency (ER) | payer MEDICARE, OTHER ==
--- NOTE | 2020-07-14 08:10 | RAD ---
EXAM: Single view of the chest HISTORY: Cough and shortness of breath COMPARISON: 06/13/2019 FINDINGS: Single view of the chest shows an enlarged but stable cardiomediastinal silhouette. Diffus e increased interstitial markings are present. There is no evidence of consolidation, mass, or pleural effusion. Degenerative changes and vertebroplasty cement are seen in the spine. IMPRESSION: No evidence of acute cardiopulmonary disease
== END 2020-07-14 05:34 ==
LOC: ERS 03:17
DX: U07.1 COVID-19 (principal); J12.82 Pneumonia due to coronavirus disease 2019; M79.7 Fibromyalgia; G62.9 Polyneuropathy, unspecified; N19 Unspecified kidney failure; Z87.891 Personal history of nicotine dependence
CPT/HCPCS: 71045